=== PATIENT | male | born 1950 | race Caucasian/White ===

== ENCOUNTER → 2019-08-20 | Outpatient (CLI) | payer OTHER | LOC: CARD 11:37 | PROVIDERS: ATTEND Internal Medicine Cardiovascular Disease | DX: I10 Essential (primary) hypertension (principal); E78.2 Mixed hyperlipidemia; I49.3 Ventricular premature depolarization; Z72.0 Tobacco use | CPT/HCPCS: 93306 ==

== ENCOUNTER → 2019-09-01 | Outpatient (CLI) | payer MEDICARE, OTHER ==
[~2019-09-01] VITALS: Ht 187 cm; Wt 142.0 kg
[~2019-09-01] MED LIST: CATHETER FLUSH 10 ML SYR IV PRN; REGADENOSON 0.4 MG/5 ML SYR (LEXISCAN) IV ONE
--- NOTE | 2019-09-01 18:55 | STRESS TEST ---
DATE OF SERVICE: 09/01/2019 LEXISCAN MYOVIEW STRESS TEST REPORT Baseline heart rate is 69, baseline blood pressure 164/94. Baseline EKG is sinus rhythm with no ischemic changes. In summary, the patient was injected with 9.80 mCi of technetium-99 Myoview and the resting images were obtained. Then, the patient received 0.4 mg of Lexiscan followed by 28.1 mCi of technetium-99 Myoview. Throughout the test, there were no EKG changes. The resting and stress images were reviewed and compared in the short axis, horizontal long axis, and vertical long axis views. Review of the images showed diaphragmatic attenuation with fixed defect involving the mid to apical inferior wall, mild reversible ischemia at the mid to apical anterolateral wall. SSS is 3, SDS 2, TID value 1.1. On the gated images, the left ventricle is prominent with end diastolic volume 215 mL and systolic volume 135 mL. Diffuse left ventricular hypokinesia with calculated ejection fraction 37%. CONCLUSION: 1. The patient tolerated Lexiscan well. 2. Diaphragmatic attenuation with fixed defect at the inferior wall, mild ischemia at the mid to apical anterolateral wall. 3. Dilated left ventricle with diffuse left ventricular hypokinesia, calculated ejection fraction is 37%. Job ID: [id number] DocumentID: [id number] Dictated Date: 09/01/2019 14:42:28 Audio Video Tech Date: 09/01/2019 18:54:39 Dictated By: NANDA OSORIO MD
== END ==
LOC: CARD 06:55
PROVIDERS: ATTEND Internal Medicine Cardiovascular Disease
DX: I25.9 Chronic ischemic heart disease, unspecified (principal); I11.9 Hypertensive heart disease without heart failure; I51.89 Other ill-defined heart diseases; E78.2 Mixed hyperlipidemia; I49.3 Ventricular premature depolarization; Z72.0 Tobacco use
CPT/HCPCS: 78452; 93017

== ENCOUNTER 2019-09-08 07:32 | Day surgery (SDC) | payer MEDICARE ==
[~2019-09-08] VITALS: Ht 188 cm; Wt 140.0 kg
[2019-09-08] VITALS (10 sets, daily range): BP systolic 115–174; BP diastolic 61–99
[2019-09-08] MEDS ORDERED: NS IV 1000 ML 1,000 ML IV SCH (07:40)
[2019-09-08] MEDS ORDERED: LIDOCAINE 1% INJ 20 ML 20 ML VIAL ONE (07:42)
[2019-09-08] MEDS ORDERED: HEParin (CATH LAB) 2,000 ML IV ONE (07:43)
[2019-09-08] MEDS ORDERED: NS IV 1000 ML 1,000 ML ONE (07:43)
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
--- OUTSIDE RECORDS SUMMARY | 2019-09-08 07:51 | XMS REPORT ---
Author Author Antoni RIVERA Organization [facility] [address] Address [address] [place] [address] Care Team Providers Care Sieve Maker Name Role Phone SCOTT RIVERA Unavailable PROBLEMS Type Condition ICD9-CM Code HZA57-TM Code Onset Dates Condition S tatus SNOMED Code Problem Lumbago M54.5 Active 427849117 Problem Other and unspecified hyperlipidemia E78.5 Active 43068641 Problem Coccydynia M53.3 August, Active 062274 01 Problem DJD (degenerative joint disease) M19.90 Sep, Active 760027717 Problem Essential hypertension, benign I10 Sep, 2 014 Active 1426623 Problem History of left hip replacement Z96.642 17 Nov, 2017 Active 5006593350042291 Problem Lumbar stenosis M48.061 13 Sep, 2015 Active 1 1764936 Problem Hip pain, chronic M25.559 13 Sep, 2015 Active 148172171 Problem Obesity (BMI 30-39.9) E66.9 Active 323516651 Problem EMMANUEL (generalized anxiety disorder) F41.1 Active 08071021 Problem Essential hypertension I10 Active 18627864 Problem Essential (primary) hypertension I10 Active 77138506 Problem Spinal stenosis of lumbar re gion, unspecified whether neurogenic claudication present M48.061 Active 8792030 7 Problem Tobacco use Z72.0 11 Dec, 2016 Active 40109 3000 Problem Obesity (BMI 30.0-34.9) E66.9 Active 795685287161769 Problem HLD (hyperlipidemia) E78.5 Sep, Active 40780324 Problem Severe obesity (BMI 35.0-39.9) with comorbidity E66.01 Sep, Active 662662955 Problem Other chronic pain G89.29 Active 8 8457092 Problem Seasonal allergic rhinitis, unspecified trigger J3 0.2 Active 854608636 Problem Unspecified osteoarthritis, unspecified site M19.9 0 Active 867002221 Problem Tingling of both feet R20.2 Active 92549976 ALLERGIES No Information ENCOUNTERS Encounter Location Date Diagnosis [address] [id number] [place] [address] August, [address] 340B [id number] [place] [address] Mar, [address] 340 [id number] [address] Mar, EMMANUEL (generalized anxiety dis order) F41.1 and Spinal stenosis of lumbar region, unspecified whether neurogenic claudication present M48.[address] [id number] [address] Mar, EMMANUEL (generalized anxiety dis order) F41.1 [facility] [address] [place] [id number] [place] [address] Mar, Spinal stenosis of lumbar region without neurogenic claudication M48.061 and Obesity (BMI 30-39.9) E66.[address] 340 [id number] [place] [address] Feb, EMMANUEL (generalized anxiety dis order) F41.1 ; Essential hypertension, benign I10 ; Lumbar stenosis M48.061 and HLD (hyperlipidemia) E78.[address] [id number] [place] [address] Feb, [address] 340B [id number], [place] [address] Feb, Spinal stenosis of lumbar re gion without neurogenic claudication M48.061 [facility] [address] [place] [address] [facility] [address] [id number] [place] [address] Jan, Tobacco use Z72.[address] 340B [id number] [place] [address] Jan, Encounter for immunization Z [address] 340 [id number], [place] [address] Jan, Essential hypertension, noam gn I10 ; B12 deficiency E53.8 and Spinal stenosis of lumbar region without neurogenic claudication M48.[address] 340B [id number] [place] [address] Dec, Low back pain M54.5 [facility] [address] [facility] [id number] [place] [address] Nov, Essential hypertension I10 ; Tobacco use Z72.0 ; Encounter for immunization Z23 and Spinal stenosis of lumbar region, unspecified whether neurogenic claudication present M48.[address] 340B [id number], [place] [address] Nov, EMMANUEL (generalized anxiety dis order) F41.1 ; Essential hypertension I10 ; Obesity (BMI 30.0-34.9) E66.9 ; Low back pain M54.5 ; Other chronic pain G89.29 and Lumbar stenosis M48.[address] 340B [id number], [place] [address] Oct, Essential (primary) hyperten amaury I10 and Other chronic pain G89.[address] 340B [id number], [place] [address] Sep, Seasonal allergic rhinitis, unspecified trigger J30.[address] 340B [id number], [place] [address] Sep, Seasonal allergic rhinitis, unspecified trigger J30.2 ; Obesity (BMI 30-39.9) E66.9 ; B12 deficiency E53.8 and Spinal stenosis of lumbar region without neurogenic claudication M48.[address] 340B [id number], [place] [address] Sep, 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 340B [id number], [place] [address] August, [address] 340B [id number], [place] [address] August, Obesity (BMI 30-39.9) E66.9 ; Unspecified osteoarthritis, unspecified site M19.90 ; Other malaise R53.81 ; Other fatigue R53.83 ; Spinal stenosis of lumbar region, unspecified whether neurogenic adrian dication present M48.061 ; Essential (primary) hypertension I10 and Tingling of both feet R20.[address] 340B [id number], [place] [address] Jul, Unspecified osteoarthritis, unspecified site M19.[address] 340B [id number], [place] [address] Jul, EMMANUEL (generalized anxiety dis order) F41.1 ; Obesity (BMI 30-39.9) E66.9 ; Seasonal allergic rhinitis, unspecified trigger J30.2 and Unspecified osteoarthritis, unspecified site M19.90 [facility] WALK IN [facility] [address] [facility] [address] 340 [id number], [place] [address] Jun, Fever, unspecified R50.9 ; I nfluenza A J10.1 ; Nausea R11.0 and Pneumonia J18.9 [facility] [address] [place] [address] [facility] [id number] [place] [address] Jun, [address] 340B [id number], [place] [address] Jun, Low back pain M54.5 ; Other chronic pain G89.29 ; Other and unspecified hyperlipidemia E78.5 ; Cervicalgia 723.1 and Obesity (BMI 30- 39.9) E66.9 [facility] [address] [facility] [id number] [place] [address] May, EMMANUEL (generalized anxiety disorder) F41.1 ; Obesity (BMI 30-39.9) E66.9 ; Essential hypertension I10 and Spinal stenosis of lumbar region, unspecified whether neurogenic claudication present M48.061 [facility] [place] [address] [facility] [id number] [address] [place] [address] Apr, [facility] [address] [id number] [address] [place] [address], [place] [address] Mar, [facility] [address] [id number] [address] [place] [address], [place] [address] Mar, [facility] [address] [facility] [id number] [address] [place] [address] Sep, [facility] [address] [id number] [address] [place] [address] Jan, [facility] [address] [id number] [address] [place] [address] Jul, [facility] [address] [facility] [id number] [address] [place] [address] Jul, [facility] [place] [address] [place] [address] Sep, 14 [facility] [address] [facility] [id number] [address] [place] [address] Sep, [facility] [place] [address] [place] [address] August, 14 [facility] [address] [facility] [id number] [address] [place] [address] August, [facility] [place] [address] [place] [address] Jul, 14 [facility] [address] [facility] [id number] [address] [place] [address] Jul, [facility] [place] [address] [place] [address] Jun, 14 [facility] [address] [facility] [id number] [address] [place] [address] Jun, [facility] [place] [address] [place] [address] May, 14 [facility] [address] [facility] [id number] [address] [place] [address] May, [facility] [place] [address] [place] [address] May, 14 [facility] [place] [address] [facility] [id number] [address] [place] [address] May, [facility] [place] [address] [place] [address] Apr, 14 [facility] [place] [address] [facility] [id number] [address] [place] [address] Apr, [facility] [place] [address] [facility] [id number] [address] [place] [address] Mar, [facility] [place] [address] [place] [address] Mar, 13 [facility] [place] [address] [facility] [id number] [address] [place] [address] Feb, [facility] [place] [address] [place] [address] Feb, 13 [facility] [place] [address] [place] [address] Jan, 13 [facility] [place] [address] [facility] [id number] [address] [place] [address] Jan, [facility] [place] [address] [place] [address] Jan, 13 [facility] [place] [address] [place] [address] [id number] [place] [address] Jan, [facility] [place] [address] [place] [address] Jan, 13 [facility] [place] [address] [place] [address] Jan, 13 [facility] [place] [address] [place] [address] Nov, 13 [facility] [place] [address] [place] [address] Nov, 13 [facility] [place] [address] [place] [address] Nov, 13 IMMUNIZATIONS No Known Immunizations SOCIAL [...]
--- OUTSIDE RECORDS SUMMARY | 2019-09-08 07:51 | XMS REPORT ---
Author Author Antoni RIVERA Organization [facility] [address] Address [address] [place] [address] Care Team Providers Care White Sugar Supervisor Name Role Phone SCOTT RIVERA Unavailable PROBLEMS Type Condition ICD9-CM Code IIX66-MX Code Onset Dates Condition S tatus SNOMED Code Problem Lumbago M54.5 Active 374881185 Problem Other and unspecified hyperlipidemia E78.5 Active 03178646 Problem Coccydynia M53.3 August, Active 020845 01 Problem DJD (degenerative joint disease) M19.90 Sep, Active 375677665 Problem Essential hypertension, benign I10 Sep, 2 014 Active 2980596 Problem History of left hip replacement Z96.642 17 Nov, 2017 Active 4540416308364834 Problem Lumbar stenosis M48.061 13 Sep, 2015 Active 1 8031329 Problem Hip pain, chronic M25.559 13 Sep, 2015 Active 829669166 Problem Obesity (BMI 30-39.9) E66.9 Active 480039974 Problem EMMANUEL (generalized anxiety disorder) F41.1 Active 15910130 Problem Essential hypertension I10 Active 27537086 Problem Essential (primary) hypertension I10 Active 12217120 Problem Spinal stenosis of lumbar re gion, unspecified whether neurogenic claudication present M48.061 Active 4713957 7 Problem Tobacco use Z72.0 11 Dec, 2016 Active 34106 3000 Problem Obesity (BMI 30.0-34.9) E66.9 Active 999572405556155 Problem HLD (hyperlipidemia) E78.5 Sep, Active 28919203 Problem Severe obesity (BMI 35.0-39.9) with comorbidity E66.01 Sep, Active 964675603 Problem Other chronic pain G89.29 Active 8 7842161 Problem Seasonal allergic rhinitis, unspecified trigger J3 0.2 Active 041464898 Problem Unspecified osteoarthritis, unspecified site M19.9 0 Active 090509568 Problem Tingling of both feet R20.2 Active 35267742 ALLERGIES No Information ENCOUNTERS Encounter Location Date Diagnosis [address] 340 [id number] [place] [address] August, [address] 340B [id number] [place] [address] Mar, [address] [id number] [address] Mar, EMMANUEL (generalized anxiety dis order) F41.1 and Spinal stenosis of lumbar region, unspecified whether neurogenic claudication present M48.[address] [id number] [address] Mar, EMMANUEL (generalized anxiety dis order) F41.1 [facility] [address] [place] [id number] [place] [address] Mar, Spinal stenosis of lumbar region without neurogenic claudication M48.061 and Obesity (BMI 30-39.9) E66.[address] [id number] [place] [address] Feb, EMMANUEL (generalized anxiety dis order) F41.1 ; Essential hypertension, benign I10 ; Lumbar stenosis M48.061 and HLD (hyperlipidemia) E78.[address] [id number] [place] [address] Feb, [address] 340B [id number] [address] Feb, Spinal stenosis of lumbar re gion without neurogenic claudication M48.061 [facility] [address] [place] [address] [facility] [address] [id number] [place] [address] Jan, Tobacco use Z72.[address] 340B [id number] [place] [address] Jan, Encounter for immunization Z [address] [id number] [address] Jan, Essential hypertension, noam gn I10 ; B12 deficiency E53.8 and Spinal stenosis of lumbar region without neurogenic claudication M48.[address] 340B [id number] [place] [address] Dec, Low back pain M54.5 [facility] [address] [facility] [id number] [place] [address] Nov, Essential hypertension I10 ; Tobacco use Z72.0 ; Encounter for immunization Z23 and Spinal stenosis of lumbar region, unspecified whether neurogenic claudication present M48.[address] 340B [id number] [place] [address] Nov, EMMANUEL (generalized anxiety dis order) F41.1 ; Essential hypertension I10 ; Obesity (BMI 30.0-34.9) E66.9 ; Low back pain M54.5 ; Other chronic pain G89.29 and Lumbar stenosis M48.[address] 340B [id number] [place] [address] Oct, Essential (primary) hyperten amaury I10 and Other chronic pain G89.[address] 340B [id number] [place] [address] Sep, Seasonal allergic rhinitis, unspecified trigger J30.[address] 340B [id number] [place] [address] Sep, Seasonal allergic rhinitis, unspecified trigger J30.2 ; Obesity (BMI 30-39.9) E66.9 ; B12 deficiency E53.8 and Spinal stenosis of lumbar region without neurogenic claudication M48.[address] 340B [id number] [place] [address] Sep, 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 340B [id number] [place] [address] August, [address] 340B [id number] [place] [address] August, Obesity (BMI 30-39.9) E66.9 ; Unspecified osteoarthritis, unspecified site M19.90 ; Other malaise R53.81 ; Other fatigue R53.83 ; Spinal stenosis of lumbar region, unspecified whether neurogenic adrian dication present M48.061 ; Essential (primary) hypertension I10 and Tingling of both feet R20.[address] 340B [id number] [place] [address] Jul, Unspecified osteoarthritis, unspecified site M19.[address] 340B [id number] [place] [address] Jul, EMMANUEL (generalized anxiety dis order) F41.1 ; Obesity (BMI 30-39.9) E66.9 ; Seasonal allergic rhinitis, unspecified trigger J30.2 and Unspecified osteoarthritis, unspecified site M19.90 [facility] WALK IN [facility] [address] [facility] [address] [id number] [place] [address] Jun, Fever, unspecified R50.9 ; I nfluenza A J10.1 ; Nausea R11.0 and Pneumonia J18.9 [facility] [address] [place] [address] [facility] [id number] [place] [address] Jun, [address] 340B [id number] [place] [address] Jun, Low back pain M54.5 ; Other chronic pain G89.29 ; Other and unspecified hyperlipidemia E78.5 ; Cervicalgia 723.1 and Obesity (BMI 30- 39.9) E66.9 [facility] ARM [address] [facility] [id number] [place] [address] May, EMMANUEL (generalized anxiety disorder) F41.1 ; Obesity (BMI 30-39.9) E66.9 ; Essential hypertension I10 and Spinal stenosis of lumbar region, unspecified whether neurogenic claudication present M48.061 [facility] [address] [facility] [id number] [address] [place] [address] Apr, [facility] [address] [id number] [address] [place] [address], [place] [address] Mar, [facility] [address] [id number] [address] [place] [address], [place] [address] Mar, [facility] [address] [facility] [id number] [address] [place] [address] Sep, [facility] [address] [id number] [address] [place] [address] Jan, [facility] [address] [id number] [address] [place] [address] Jul, [facility] [address] [facility] [id number] [address] [place] [address] Jul, [facility] [place] [address] [place] [address] Sep, 14 [facility] [address] [facility] [id number] [address] [place] [address] Sep, [facility] [place] [address] [place] [address] August, 14 [facility] [address] [facility] [id number] [address] [place] [address] August, [facility] [place] [address] [place] [address] Jul, 14 [facility] [address] [facility] [id number] [address] [place] [address] Jul, [facility] [place] [address] [place] [address] Jun, 14 [facility] [address] [facility] [id number] [address] [place] [address] Jun, [facility] [place] [address] [place] [address] May, 14 [facility] [address] [facility] [id number] [address] [place] [address] May, [facility] [place] [address] [place] [address] May, 14 [facility] [address] [facility] [id number] [address] [place] [address] May, [facility] [place] [address] [place] [address] Apr, 14 [facility] [address] [facility] [id number] [address] [place] [address] Apr, [facility] [address] [facility] [id number] [address] [place] [address] Mar, [facility] [place] [address] [place] [address] Mar, 13 [facility] [address] [facility] [id number] [address] [place] [address] Feb, [facility] [place] [address] [place] [address] Feb, 13 [facility] [place] [address] [place] [address] Jan, 13 [facility] [address] [facility] [id number] [address] [place] [address] Jan, [facility] [place] [address] [place] [address] Jan, 13 [facility] [address] [place] [id number] [place] [address] Jan, [facility] [place] [address] [place] [address] Jan, 13 [facility] [place] [address] [place] [address] Jan, 13 [facility] [place] [address] [place] [address] Nov, 13 [facility] [place] [address] [place] [address] Nov, 13 [facility] [place] [address] [place] [address] Nov, 13 IMMUNIZATIONS No Known Immunizations SOCIAL [...]
--- OUTSIDE RECORDS SUMMARY | 2019-09-08 07:51 | XMS REPORT ---
Author Author Antoni RIVERA Organization [facility] [address] Address [address] [place] [address] Care Team Providers Care Stereotype Molder Name Role Phone SCOTT RIVERA Unavailable PROBLEMS Type Condition ICD9-CM Code ETS78-JT Code Onset Dates Condition S tatus SNOMED Code Problem Lumbago M54.5 Active 194287872 Problem Severe obesity (BMI 35.0-39.9) with comorbidity E66.01 Sep, Active 452024566 Problem DJD (degenerative joint disease) M19.90 Sep, Active 961531414 Problem Tobacco use Z72.0 Dec, Active 19548 3000 Problem History of left hip replacement Z96.642 Nov, Active 9533076468826387 Problem Coccydynia M53.3 August, Active 919038 01 Problem Hip pain, chronic M25.559 13 Sep, 2015 Active 959514452 Problem Essential hypertension, benign I10 20 Sep, 2 014 Active 9751418 Problem Obesity (BMI 30-39.9) E66.9 Active 411096428 Problem EMMANUEL (generalized anxiety disorder) F41.1 Active 51447835 Problem Essential hypertension I10 Active 98194695 Problem Essential (primary) hypertension I10 Active 57472056 Problem Spinal stenosis of lumbar re gion, unspecified whether neurogenic claudication present M48.061 Active 6748657 7 Problem Lumbar stenosis M48.061 13 Sep, 2015 Active 1 4634745 Problem Obesity (BMI 30.0-34.9) E66.9 Active 562165468998664 Problem Other and unspecified hyperlipidemia E78.5 Active 49063603 Problem HLD (hyperlipidemia) E78.5 Sep, Active 63121537 Problem Other chronic pain G89.29 Active 8 3250264 Problem Unspecified osteoarthritis, unspecified site M19.9 0 Active 834468795 Problem Seasonal allergic rhinitis, unspecified trigger J3 0.2 Active 511434202 Problem Tingling of both feet R20.2 Active 55141969 ALLERGIES No Information ENCOUNTERS Encounter Location Date Diagnosis [address] [place] [address] Mar, [address] [address] [place] [address] Mar, EMMANUEL (generalized anxiety dis order) F41.1 and Spinal stenosis of lumbar region, unspecified whether neurogenic claudication present M48.061 [address] [address] [place] [address] Mar, EMMANUEL (generalized anxiety dis order) F41.1 [facility] [address] [place] [address] [address] Mar, Spinal stenosis of lumbar region without neurogenic claudication M48.061 and Obesity (BMI 30-39.9) E66.9 [address] [place] [address] Feb, EMMANUEL (generalized anxiety dis order) F41.1 ; Essential hypertension, benign I10 ; Lumbar stenosis M48.061 and HLD (hyperlipidemia) E78.5 [address] [place] [address] Feb, [address] [place] [address] Feb, Spinal stenosis of lumbar re gion without neurogenic claudication M48.061 [facility] [address] [place] [address] [address] Jan, Tobacco use Z72.0 [address] [address] [place] [address] Jan, Encounter for immunization Z 23 [address] [address] [place] [address] Jan, Essential hypertension, noam gn I10 ; B12 deficiency E53.8 and Spinal stenosis of lumbar region without neurogenic claudication M48.061 [address] [place] [address] 04 Dec, 2018 Low back pain M54.5 [facility] [address] [facility]07757T [place] [address] Nov, Essential hypertension I10 ; Tobacco use Z72.0 ; Encounter for immunization Z23 and Spinal stenosis of lumbar region, unspecified whether neurogenic claudication present M48.061 [address] [address] [place] [address] Nov, EMMANUEL (generalized anxiety dis order) F41.1 ; Essential hypertension I10 ; Obesity (BMI 30.0-34.9) E66.9 ; Low back pain M54.5 ; Other chronic pain G89.29 and Lumbar stenosis M48.061 [address] [address] [place] [address] 09 Oct, 2018 Essential (primary) hyperten amaury I10 and Other chronic pain G89.29 [address] [address] [place] [address] 07 Sep, 2018 Seasonal allergic rhinitis, unspecified trigger J30.2 [address] [place] [address] 07 Sep, 2018 Seasonal allergic rhinitis, unspecified trigger J30.2 ; Obesity (BMI 30-39.9) E66.9 ; B12 deficiency E53.8 and Spinal stenosis of lumbar region without neurogenic claudication M48.061 [address] [address] [place] [address] Sep, 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 [address] [address] [place] [address] August, [address] [address] [place] [address] August, Obesity (BMI 30-39.9) E66.9 ; Unspecified osteoarthritis, unspecified site M19.90 ; Other malaise R53.81 ; Other fatigue R53.83 ; Spinal stenosis of lumbar region, unspecified whether neurogenic adrian dication present M48.061 ; Essential (primary) hypertension I10 and Tingling of both feet R20.[address] [place] [address] Jul, Unspecified osteoarthritis, unspecified site M19.90 [address] [place] [address] Jul, EMMANUEL (generalized anxiety dis order) F41.1 ; Obesity (BMI 30-39.9) E66.9 ; Seasonal allergic rhinitis, unspecified trigger J30.2 and Unspecified osteoarthritis, unspecified site M19.90 [facility] WALK IN [facility] [address] [place] [address] Jun, Fever, unspecified R50.9 ; I nfluenza A J10.1 ; Nausea R11.0 and Pneumonia J18.[address] [facility]07757L [place] [address] Jun, [address] [place] [address] Jun, Low back pain M54.5 ; Other chronic pain G89.29 ; Other and unspecified hyperlipidemia E78.5 ; Cervicalgia 723.1 and Obesity (BMI 30- 39.9) E66.9 [facility] ARM [address] [facility] [id number] [place] [address] May, EMMANUEL (generalized anxiety disorder) F41.1 ; Obesity (BMI 30-39.9) E66.9 ; Essential hypertension I10 and Spinal stenosis of lumbar region, unspecified whether neurogenic claudication present M48.061 [facility] [id number] [place] [address] Apr, [facility] [address] [id number] [place] [address] Mar, [facility] [address] [address] Mar, [facility] [address] [facility]75[address] [place] [address] Sep, [facility] [address] [facility] [place] [address] Jan, [facility] [address] [facility] [place] [address] Jul, [facility] [address] [id number] [place] [address] Jul, [facility] [place] [address] [place] [address] Sep, 14 [facility] [address] [id number] [place] [address] Sep, [facility] [place] [address] [place] [address] August, 14 [facility] [id number] [place] [address] August, [facility] [place] [address] [place] [address] Jul, 14 [facility] [id number] [place] [address] Jul, [facility] [place] [address] [place] [address] Jun, 14 [facility] [id number] [place] [address] Jun, [facility] [place] [address] [place] [address] May, 14 [facility] [address] [facility] [place] [address] May, [facility] [place] [address] [place] [address] May, 14 [facility] [id number] [place] [address] May, [facility] [place] [address] [place] [address] Apr, 14 [facility] [address] [place] [id number] [place] [address] Apr, [facility] [address] [place] [address] Mar, [facility] [place] [address] [place] [address] Mar, [address] [address] Feb, [facility] [place] [address] [place] [address] Feb, 13 [facility] [place] [address] [place] [address] Jan, [address] [address] Jan, [facility] [address] [place] [address] Jan, [id number] [place] [address] Jan, [facility] [place] [address] [place] [address] Jan, 13 [facility] [place] [address] [place] [address] Jan, 13 [facility] [place] [address] [place] [address] Nov, 13 [facility] [place] [address] [place] [address] Nov, 13 [facility] [place] [address] [place] [address] Nov, 13 IMMUNIZATIONS No Known Immunizations SOCIAL [...]
--- OUTSIDE RECORDS SUMMARY | 2019-09-08 07:51 | XMS REPORT ---
Author Author Antoni RIVERA Organization [facility] [address] Address [address] [place] [address] Care Team Providers Care Sewer System Supervisor Name Role Phone SCOTT RIVERA Unavailable PROBLEMS Type Condition ICD9-CM Code BSX53-PR Code Onset Dates Condition S tatus SNOMED Code Problem Lumbago M54.5 Active 952088889 Problem Severe obesity (BMI 35.0-39.9) with comorbidity E66.01 Sep, Active 481929613 Problem DJD (degenerative joint disease) M19.90 Sep, Active 093717378 Problem Tobacco use Z72.0 Dec, Active 05709 3000 Problem History of left hip replacement Z96.642 Nov, Active 2457306598744754 Problem Coccydynia M53.3 August, Active 782794 01 Problem Hip pain, chronic M25.559 13 Sep, 2015 Active 870321112 Problem Essential hypertension, benign I10 20 Sep, 2 014 Active 8171740 Problem Obesity (BMI 30-39.9) E66.9 Active 583873832 Problem EMMANUEL (generalized anxiety disorder) F41.1 Active 76814626 Problem Essential hypertension I10 Active 38883023 Problem Essential (primary) hypertension I10 Active 36420628 Problem Spinal stenosis of lumbar re gion, unspecified whether neurogenic claudication present M48.061 Active 8245258 7 Problem Lumbar stenosis M48.061 13 Sep, 2015 Active 1 5970368 Problem Obesity (BMI 30.0-34.9) E66.9 Active 670670622195007 Problem Other and unspecified hyperlipidemia E78.5 Active 72261959 Problem HLD (hyperlipidemia) E78.5 Sep, Active 59529564 Problem Other chronic pain G89.29 Active 8 8724836 Problem Unspecified osteoarthritis, unspecified site M19.9 0 Active 602510780 Problem Seasonal allergic rhinitis, unspecified trigger J3 0.2 Active 564722894 Problem Tingling of both feet R20.2 Active 56692723 ALLERGIES No Information ENCOUNTERS Encounter Location Date Diagnosis [address] [address] Mar, [address] [address] Mar, EMMANUEL (generalized anxiety dis order) F41.1 and Spinal stenosis of lumbar region, unspecified whether neurogenic claudication present M48.061 [address] [address] Mar, EMMANUEL (generalized anxiety dis order) F41.1 [facility] [address] [place] [address] [address] Mar, Spinal stenosis of lumbar region without neurogenic claudication M48.061 and Obesity (BMI 30-39.9) E66.9 [address] [address] Feb, EMMANUEL (generalized anxiety dis order) F41.1 ; Essential hypertension, benign I10 ; Lumbar stenosis M48.061 and HLD (hyperlipidemia) E78.5 [address] [address] Feb, [address] [address] Feb, Spinal stenosis of lumbar re gion without neurogenic claudication M48.061 [facility] [address] [place] [id number] [address] Jan, Tobacco use Z72.0 [address] [address] Jan, Encounter for immunization Z 23 [address] [address] Jan, Essential hypertension, noam gn I10 ; B12 deficiency E53.8 and Spinal stenosis of lumbar region without neurogenic claudication M48.061 [address] [place] [address] 04 Dec, 2018 Low back pain M54.5 [facility] [address] [facility] [place] [address] Nov, Essential hypertension I10 ; Tobacco use Z72.0 ; Encounter for immunization Z23 and Spinal stenosis of lumbar region, unspecified whether neurogenic claudication present M48.061 [address] [address] Nov, EMMANUEL (generalized anxiety dis order) F41.1 ; Essential hypertension I10 ; Obesity (BMI 30.0-34.9) E66.9 ; Low back pain M54.5 ; Other chronic pain G89.29 and Lumbar stenosis M48.061 [address] [address] 09 Oct, 2018 Essential (primary) hyperten amaury I10 and Other chronic pain G89.29 [address] [address] 07 Sep, 2018 Seasonal allergic rhinitis, unspecified trigger J30.2 [address] [address] 07 Sep, 2018 Seasonal allergic rhinitis, unspecified trigger J30.2 ; Obesity (BMI 30-39.9) E66.9 ; B12 deficiency E53.8 and Spinal stenosis of lumbar region without neurogenic claudication M48.061 [address] [address] Sep, 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 [address] [address] August, [address] [address] August, Obesity (BMI 30-39.9) E66.9 ; Unspecified osteoarthritis, unspecified site M19.90 ; Other malaise R53.81 ; Other fatigue R53.83 ; Spinal stenosis of lumbar region, unspecified whether neurogenic adrian dication present M48.061 ; Essential (primary) hypertension I10 and Tingling of both feet R20.[address] [place] [address] Jul, Unspecified osteoarthritis, unspecified site M19.90 [address] [place] [address] Jul, EMMANUEL (generalized anxiety dis order) F41.1 ; Obesity (BMI 30-39.9) E66.9 ; Seasonal allergic rhinitis, unspecified trigger J30.2 and Unspecified osteoarthritis, unspecified site M19.90 [facility] [address] [place] [address] Jun, Fever, unspecified R50.9 ; I nfluenza A J10.1 ; Nausea R11.0 and Pneumonia J18.[address] [facility] [place] [address] Jun, [address] [place] [address] Jun, Low back pain M54.5 ; Other chronic pain G89.29 ; Other and unspecified hyperlipidemia E78.5 ; Cervicalgia 723.1 and Obesity (BMI 30- 39.9) E66.9 [facility] [address] [facility] [id number] [address] May, EMMANUEL (generalized anxiety disorder) F41.1 ; Obesity (BMI 30-39.9) E66.9 ; Essential hypertension I10 and Spinal stenosis of lumbar region, unspecified whether neurogenic claudication present M48.061 [facility] [id number] [place] [address] Apr, [facility] [id number] [place] [address] Mar, [facility] [address] [address] Mar, [facility] [address] [facility] [place] [address] Sep, [facility] [address] [facility] [place] [address] Jan, [facility] [address] [facility] [place] [address] Jul, [facility] [id number] [place] [address] Jul, [facility] [address] [place] [address] Sep, 14 [facility] [id number] [place] [address] Sep, [facility] [address] [place] [address] August, 14 [facility] [id number] [place] [address] August, [facility] [address] [place] [address] Jul, 14 [facility] [id number] [place] [address] Jul, [facility] [address] [place] [address] Jun, 14 [facility] [id number] [place] [address] Jun, [facility] [address] [place] [address] May, 14 [facility] [address] [facility] [place] [address] May, [facility] [address] [place] [address] May, 14 [facility] [id number] [place] [address] May, [facility] [address] [place] [address] Apr, 14 [facility] [address] [place] [id number] [place] [address] Apr, [facility] [address] [place] [address] Mar, [facility] [address] [place] [address] Mar, [address] [address] Feb, [facility] [address] [place] [address] Feb, 13 [facility] [address] [place] [address] Jan, [address] [address] Jan, [facility] [address] [place] [address] Jan, 13 [id number] [place] [address] Jan, [facility] [address] [place] [address] Jan, 13 [facility] [address] [place] [address] Jan, 13 [facility] [address] [place] [address] Nov, 13 [facility] [address] [place] [address] Nov, 13 [facility] [address] [place] [address] Nov, 13 IMMUNIZATIONS No Known Immunizations SOCIAL [...]
--- OUTSIDE RECORDS SUMMARY | 2019-09-08 07:52 | XMS REPORT ---
Author Author Antoni RIVERA Organization [facility] [address] [place] [address] Care Team Providers Care Stable Cleaner Name Role Phone SCOTT RIVERA Unavailable PROBLEMS Type Condition ICD9-CM Code RCS06-UR Code Onset Dates Condition S tatus SNOMED Code Problem Lumbago M54.5 Active 279017676 Problem Severe obesity (BMI 35.0-39.9) with comorbidity E66.01 Sep, Active 273147659 Problem DJD (degenerative joint disease) M19.90 Sep, Active 521713067 Problem Tobacco use Z72.0 Dec, Active 32063 3000 Problem History of left hip replacement Z96.642 Nov, Active 3463132662271583 Problem Coccydynia M53.3 August, Active 958381 01 Problem Hip pain, chronic M25.559 13 Sep, 2015 Active 323256281 Problem Essential hypertension, benign I10 20 Sep, 2 014 Active 1510500 Problem Obesity (BMI 30-39.9) E66.9 Active 236399008 Problem EMMANUEL (generalized anxiety disorder) F41.1 Active 20117376 Problem Essential hypertension I10 Active 19506299 Problem Essential (primary) hypertension I10 Active 12923998 Problem Spinal stenosis of lumbar re gion, unspecified whether neurogenic claudication present M48.061 Active 2104386 7 Problem Lumbar stenosis M48.061 13 Sep, 2015 Active 1 4931399 Problem Obesity (BMI 30.0-34.9) E66.9 Active 140431609773321 Problem Other and unspecified hyperlipidemia E78.5 Active 68737679 Problem HLD (hyperlipidemia) E78.5 Sep, Active 79863647 Problem Other chronic pain G89.29 Active 8 3134256 Problem Unspecified osteoarthritis, unspecified site M19.9 0 Active 274873777 Problem Seasonal allergic rhinitis, unspecified trigger J3 0.2 Active 068426894 Problem Tingling of both feet R20.2 Active 74297267 ALLERGIES No Information ENCOUNTERS Encounter Location Date Diagnosis [address] [address] Mar, [address] [address] Mar, EMMANUEL (generalized anxiety dis order) F41.1 and Spinal stenosis of lumbar region, unspecified whether neurogenic claudication present M48.061 [address] [address] Mar, EMMANUEL (generalized anxiety dis order) F41.1 [facility] [address] [place] [address] Mar, Spinal stenosis of lumbar region without neurogenic claudication M48.061 and Obesity (BMI 30-39.9) E66.9 [address] [address] Feb, EMMANUEL (generalized anxiety dis order) F41.1 ; Essential hypertension, benign I10 ; Lumbar stenosis M48.061 and HLD (hyperlipidemia) E78.5 [address] [address] Feb, [address] [address] Feb, Spinal stenosis of lumbar re gion without neurogenic claudication M48.061 [facility] [address] [place] [address] Jan, Tobacco use Z72.0 [address] [address] Jan, Encounter for immunization Z 23 [address] [address] Jan, Essential hypertension, noam gn I10 ; B12 deficiency E53.8 and Spinal stenosis of lumbar region without neurogenic claudication M48.061 [address] [place] [address] 04 Dec, 2018 Low back pain M54.5 [facility] [address] [facility] [place] [address] Nov, Essential hypertension I10 ; Tobacco use Z72.0 ; Encounter for immunization Z23 and Spinal stenosis of lumbar region, unspecified whether neurogenic claudication present M48.061 [address] [address] Nov, EMMANUEL (generalized anxiety dis order) F41.1 ; Essential hypertension I10 ; Obesity (BMI 30.0-34.9) E66.9 ; Low back pain M54.5 ; Other chronic pain G89.29 and Lumbar stenosis M48.061 [address] [address] 09 Oct, 2018 Essential (primary) hyperten amaury I10 and Other chronic pain G89.29 [address] [address] 07 Sep, 2018 Seasonal allergic rhinitis, unspecified trigger J30.2 [address] [address] 07 Sep, 2018 Seasonal allergic rhinitis, unspecified trigger J30.2 ; Obesity (BMI 30-39.9) E66.9 ; B12 deficiency E53.8 and Spinal stenosis of lumbar region without neurogenic claudication M48.061 [address] [address] Sep, 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 [address] [address] August, [address] [address] August, Obesity (BMI 30-39.9) E66.9 ; Unspecified osteoarthritis, unspecified site M19.90 ; Other malaise R53.81 ; Other fatigue R53.83 ; Spinal stenosis of lumbar region, unspecified whether neurogenic adrian dication present M48.061 ; Essential (primary) hypertension I10 and Tingling of both feet R20.[address] [place] [address] Jul, Unspecified osteoarthritis, unspecified site M19.90 [address] [place] [address] Jul, EMMANUEL (generalized anxiety dis order) F41.1 ; Obesity (BMI 30-39.9) E66.9 ; Seasonal allergic rhinitis, unspecified trigger J30.2 and Unspecified osteoarthritis, unspecified site M19.90 [facility] WALK IN [facility] [address] [place] [address] Jun, Fever, unspecified R50.9 ; I nfluenza A J10.1 ; Nausea R11.0 and Pneumonia J18.[address] [facility] [place] [address] Jun, [address] [place] [address] Jun, Low back pain M54.5 ; Other chronic pain G89.29 ; Other and unspecified hyperlipidemia E78.5 ; Cervicalgia 723.1 and Obesity (BMI 30- 39.9) E66.9 [facility] [address] [facility] [id number] [address] May, EMMANUEL (generalized anxiety disorder) F41.1 ; Obesity (BMI 30-39.9) E66.9 ; Essential hypertension I10 and Spinal stenosis of lumbar region, unspecified whether neurogenic claudication present M48.061 [facility] [id number] [place] [address] Apr, [facility] [id number] [place] [address] Mar, [facility] [address] [address] Mar, [facility] [address] [facility] [place] [address] Sep, [facility] [address] [facility] [place] [address] Jan, [facility] [address] [facility] [place] [address] Jul, [facility] [id number] [place] [address] Jul, [facility] [address] [place] [address] Sep, 14 [facility] [id number] [place] [address] Sep, [facility] [address] [place] [address] August, 14 [facility] [id number] [place] [address] August, [facility] [address] [place] [address] Jul, 14 [facility] [id number] [place] [address] Jul, [facility] [address] [place] [address] Jun, 14 [facility] [id number] [place] [address] Jun, [facility] [address] [place] [address] May, 14 [facility] [address] [facility] [place] [address] May, [facility] [address] [place] [address] May, 14 [facility] [id number] [place] [address] May, [facility] [address] [place] [address] Apr, 14 [facility] [address] [place] [id number] [place] [address] Apr, [facility] [address] [place] [address] Mar, [facility] [address] [place] [address] Mar, [address] [address] Feb, [facility] [address] [place] [address] Feb, 13 [facility] [address] [place] [address] Jan, [address] [address] Jan, [facility] [address] [place] [address] Jan, 13 [id number] [place] [address] Jan, [facility] [address] [place] [address] Jan, 13 [facility] [address] [place] [address] Jan, 13 [facility] [address] [place] [address] Nov, 13 [facility] [address] [place] [address] Nov, 13 [facility] [address] [place] [address] Nov, 13 IMMUNIZATIONS No Known Immunizations SOCIAL [...]
--- OUTSIDE RECORDS SUMMARY | 2019-09-08 07:52 | XMS REPORT | Clinical Summary ---
Author Author Antoni Coleman Organization All Address Unknown Phone Unavailable Allergies, Adverse Reactions, Alerts Allergy Name Reaction Description Start Date Severity Status Pr ovider Allergies Unknown Conditions or Problems Problem Name Problem Code Onset Date Status Entry Date Provider Comment Standard Description Annotate Problems Unknown Active Medication List Medication Instructions Start Date Stop Date Generic Name NDC Status Provider Patient Instruction Drug Treatment Unknown - unknown
--- OUTSIDE RECORDS SUMMARY | 2019-09-08 07:52 | XMS REPORT ---
Author Author Antoni RIVERA Organization [facility] [address] Address [address] [place] [address] Care Team Providers Care Nailing Machine Operator Automatic Name Role Phone SCOTT RIVERA Unavailable PROBLEMS Type Condition ICD9-CM Code [id number] Code Onset Dates Condition S tatus SNOMED Code Problem Lumbago M54.5 Active 222816402 Problem Severe obesity (BMI 35.0-39.9) with comorbidity E66.01 Sep, Active 818363360 Problem DJD (degenerative joint disease) M19.90 Sep, Active 031358129 Problem Tobacco use Z72.0 Dec, Active 59987 3000 Problem History of left hip replacement Z96.642 Nov, Active 4860387771202313 Problem Coccydynia M53.3 August, Active 205135 01 Problem Hip pain, chronic M25.559 13 Sep, 2015 Active 885016621 Problem Essential hypertension, benign I10 20 Sep, 2 014 Active 6740896 Problem Obesity (BMI 30-39.9) E66.9 Active 466920033 Problem EMMANUEL (generalized anxiety disorder) F41.1 Active 72434655 Problem Essential hypertension I10 Active 44684231 Problem Essential (primary) hypertension I10 Active 00099200 Problem Spinal stenosis of lumbar re gion, unspecified whether neurogenic claudication present M48.061 Active 3500816 7 Problem Lumbar stenosis M48.061 13 Sep, 2015 Active 1 8828440 Problem Obesity (BMI 30.0-34.9) E66.9 Active 511141668549757 Problem Other and unspecified hyperlipidemia E78.5 Active 58095624 Problem HLD (hyperlipidemia) E78.5 Sep, Active 06177783 Problem Other chronic pain G89.29 Active 8 6085472 Problem Unspecified osteoarthritis, unspecified site M19.9 0 Active 138738745 Problem Seasonal allergic rhinitis, unspecified trigger J3 0.2 Active 480777647 Problem Tingling of both feet R20.2 Active 58195750 ALLERGIES No Information ENCOUNTERS Encounter Location Date Diagnosis [address] [address] May, [address] [address] Mar, [address] [address] Mar, EMMANUEL (generalized anxiety dis order) F41.1 and Spinal stenosis of lumbar region, unspecified whether neurogenic claudication present M48.061 [address] [address] Mar, EMMANUEL (generalized anxiety dis order) F41.1 [facility] [address] [place] [id number] [address] Mar, Spinal stenosis of lumbar region without neurogenic claudication M48.061 and Obesity (BMI 30-39.9) E66.9 [address] [address] Feb, EMMANUEL (generalized anxiety dis order) F41.1 ; Essential hypertension, benign I10 ; Lumbar stenosis M48.061 and HLD (hyperlipidemia) E78.5 [address] [address] Feb, [address] [address] Feb, Spinal stenosis of lumbar re gion without neurogenic claudication M48.061 [facility] [address] [id number] [address] Jan, Tobacco use Z72.0 [address] [address] Jan, Encounter for immunization Z 23 [address] [address] Jan, Essential hypertension, noam gn I10 ; B12 deficiency E53.8 and Spinal stenosis of lumbar region without neurogenic claudication M48.061 [address] [place] [address] Dec, Low back pain M54.5 [address] [facility] [id number] [address] Nov, Essential hypertension I10 ; Tobacco use Z72.0 ; Encounter for immunization Z23 and Spinal stenosis of lumbar region, unspecified whether neurogenic claudication present M48.061 [address] [place] [address] Nov, EMMANUEL (generalized anxiety dis order) F41.1 ; Essential hypertension I10 ; Obesity (BMI 30.0-34.9) E66.9 ; Low back pain M54.5 ; Other chronic pain G89.29 and Lumbar stenosis M48.061 [address] [address] Oct, Essential (primary) hyperten amaury I10 and Other chronic pain G89.29 [address] [place] [address] Sep, Seasonal allergic rhinitis, unspecified trigger J30.2 [address] [place] [address] 07 Sep, 2018 Seasonal allergic rhinitis, unspecified trigger J30.2 ; Obesity (BMI 30-39.9) E66.9 ; B12 deficiency E53.8 and Spinal stenosis of lumbar region without neurogenic claudication M48.061 [address] [place] [address] Sep, 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 [address] [place] [address] August, [address] [place] [address] August, Obesity (BMI 30-39.9) E66.9 ; Unspecified osteoarthritis, unspecified site M19.90 ; Other malaise R53.81 ; Other fatigue R53.83 ; Spinal stenosis of lumbar region, unspecified whether neurogenic adrian dication present M48.061 ; Essential (primary) hypertension I10 and Tingling of both feet R20.2 [address] [place] [address] Jul, Unspecified osteoarthritis, unspecified site M19.90 [address] [place] [address] Jul, EMMANUEL (generalized anxiety dis order) F41.1 ; Obesity (BMI 30-39.9) E66.9 ; Seasonal allergic rhinitis, unspecified trigger J30.2 and Unspecified osteoarthritis, unspecified site M19.90 [facility] [address] [address] [place] [address] Jun, Fever, unspecified R50.9 ; I nfluenza A J10.1 ; Nausea R11.0 and Pneumonia J18.9 [facility] [address] [facility] [place] [address] Jun, [address] [place] [address] Jun, Low back pain M54.5 ; Other chronic pain G89.29 ; Other and unspecified hyperlipidemia E78.5 ; Cervicalgia 723.1 and Obesity (BMI 30- 39.9) E66.9 [facility] [address] [facility] [id number] [place] [address] May, EMMANUEL (generalized anxiety disorder) F41.1 ; Obesity (BMI 30-39.9) E66.9 ; Essential hypertension I10 and Spinal stenosis of lumbar region, unspecified whether neurogenic claudication present M48.061 [facility] [address] [id number] [place] [address] Apr, [facility] [id number] [place] [address] Mar, [facility] [address] [facility] [place] [address] Mar, [facility] [id number] [place] [address] Sep, [facility] [address] [facility] [place] [address] Jan, [facility] [id number] [place] [address] Jul, [facility] [address] [id number] [place] [address] Jul, [facility] [place] [address] [place] [address] Sep, 14 [facility] [id number] [place] [address] Sep, [facility] [place] [address] [place] [address] August, 14 [facility] [id number] [place] [address] August, [facility] [place] [address] [place] [address] Jul, 14 [facility] [id number] [place] [address] Jul, [facility] [place] [address] [place] [address] Jun, 14 [facility] [id number] [place] [address] Jun, [facility] [place] [address] [place] [address] May, 14 [facility] [id number] [place] [address] May, [facility] [place] [address] [place] [address] May, 14 [facility] [address] [address] May, [facility] [place] [address] [place] [address] Apr, 14 [facility] [address] [place] [address] Apr, [facility] [address] [place] [address] Mar, [facility] [address] [place] [address] Mar, 13 [facility] [address] [place] [address] Feb, [facility] [address] [place] [address] Feb, [address] [facility] [place] [address] [place] [address] Jan, [address] [address] Jan, [facility] [place] [address] [place] [address] Jan, 13 [id number] [place] [address] Jan, [facility] [place] [address] [place] [address] Jan, 13 [facility] [place] [address] [place] [address] Jan, 13 [facility] [place] [address] [place] [address] Nov, 13 [facility] [place] [address] [place] [address] Nov, 13 [facility] [place] [address] [place] [address] Nov, 13 IMMUNIZATIONS No Known Immunizations SOCIAL [...]
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
--- OUTSIDE RECORDS SUMMARY | 2019-09-08 07:52 | XMS REPORT ---
Author Author Antoni RIVERA Organization [facility] [address] [place] [address] Care Team Providers Care Claims Account Manager Name Role Phone SCOTT RIVERA Unavailable PROBLEMS Type Condition ICD9-CM Code BOX35-BH Code Onset Dates Condition S tatus SNOMED Code Problem Lumbago M54.5 Active 429822237 Problem Severe obesity (BMI 35.0-39.9) with comorbidity E66.01 Sep, Active 691949845 Problem DJD (degenerative joint disease) M19.90 Sep, Active 498827051 Problem Tobacco use Z72.0 Dec, Active 31142 3000 Problem History of left hip replacement Z96.642 Nov, Active 3601563754623983 Problem Coccydynia M53.3 August, Active 508758 01 Problem Hip pain, chronic M25.559 13 Sep, 2015 Active 673278455 Problem Essential hypertension, benign I10 20 Sep, 2 014 Active 3910029 Problem Obesity (BMI 30-39.9) E66.9 Active 162940588 Problem EMMANUEL (generalized anxiety disorder) F41.1 Active 34821760 Problem Essential hypertension I10 Active 42064876 Problem Essential (primary) hypertension I10 Active 58439910 Problem Spinal stenosis of lumbar re gion, unspecified whether neurogenic claudication present M48.061 Active 0097268 7 Problem Lumbar stenosis M48.061 13 Sep, 2015 Active 1 5603323 Problem Obesity (BMI 30.0-34.9) E66.9 Active 331955564784024 Problem Other and unspecified hyperlipidemia E78.5 Active 33331668 Problem HLD (hyperlipidemia) E78.5 Sep, Active 30007087 Problem Other chronic pain G89.29 Active 8 3010677 Problem Unspecified osteoarthritis, unspecified site M19.9 0 Active 601287064 Problem Seasonal allergic rhinitis, unspecified trigger J3 0.2 Active 133955977 Problem Tingling of both feet R20.2 Active 93689998 ALLERGIES No Information ENCOUNTERS Encounter Location Date Diagnosis [address] [address] Mar, [address] [address] Mar, EMMANUEL (generalized anxiety dis order) F41.1 and Spinal stenosis of lumbar region, unspecified whether neurogenic claudication present M48.061 [address] [address] Mar, EMMANUEL (generalized anxiety dis order) F41.1 [facility] [address] [place] [address] Mar, Spinal stenosis of lumbar region without neurogenic claudication M48.061 and Obesity (BMI 30-39.9) E66.9 [address] [address] Feb, EMMANUEL (generalized anxiety dis order) F41.1 ; Essential hypertension, benign I10 ; Lumbar stenosis M48.061 and HLD (hyperlipidemia) E78.5 [address] [address] Feb, [address] [address] Feb, Spinal stenosis of lumbar re gion without neurogenic claudication M48.061 [facility] [address] [place] [address] Jan, Tobacco use Z72.0 [address] [address] Jan, Encounter for immunization Z 23 [address] [address] Jan, Essential hypertension, noam gn I10 ; B12 deficiency E53.8 and Spinal stenosis of lumbar region without neurogenic claudication M48.061 [address] [place] [address] 04 Dec, 2018 Low back pain M54.5 [facility] [address] [facility] [place] [address] Nov, Essential hypertension I10 ; Tobacco use Z72.0 ; Encounter for immunization Z23 and Spinal stenosis of lumbar region, unspecified whether neurogenic claudication present M48.061 [address] [address] Nov, EMMANUEL (generalized anxiety dis order) F41.1 ; Essential hypertension I10 ; Obesity (BMI 30.0-34.9) E66.9 ; Low back pain M54.5 ; Other chronic pain G89.29 and Lumbar stenosis M48.061 [address] [address] 09 Oct, 2018 Essential (primary) hyperten amaury I10 and Other chronic pain G89.29 [address] [address] 07 Sep, 2018 Seasonal allergic rhinitis, unspecified trigger J30.2 [address] [address] 07 Sep, 2018 Seasonal allergic rhinitis, unspecified trigger J30.2 ; Obesity (BMI 30-39.9) E66.9 ; B12 deficiency E53.8 and Spinal stenosis of lumbar region without neurogenic claudication M48.061 [address] [address] Sep, 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 [address] [address] August, [address] [address] August, Obesity (BMI 30-39.9) E66.9 ; Unspecified osteoarthritis, unspecified site M19.90 ; Other malaise R53.81 ; Other fatigue R53.83 ; Spinal stenosis of lumbar region, unspecified whether neurogenic adrian dication present M48.061 ; Essential (primary) hypertension I10 and Tingling of both feet R20.[address] [place] [address] Jul, Unspecified osteoarthritis, unspecified site M19.90 [address] [place] [address] Jul, EMMANUEL (generalized anxiety dis order) F41.1 ; Obesity (BMI 30-39.9) E66.9 ; Seasonal allergic rhinitis, unspecified trigger J30.2 and Unspecified osteoarthritis, unspecified site M19.90 [facility] [address] [place] [address] Jun, Fever, unspecified R50.9 ; I nfluenza A J10.1 ; Nausea R11.0 and Pneumonia J18.[address] [facility] [place] [address] Jun, [address] [place] [address] Jun, Low back pain M54.5 ; Other chronic pain G89.29 ; Other and unspecified hyperlipidemia E78.5 ; Cervicalgia 723.1 and Obesity (BMI 30- 39.9) E66.9 [facility] [address] [facility] [id number] [place] [address] May, EMMANUEL (generalized anxiety disorder) F41.1 ; Obesity (BMI 30-39.9) E66.9 ; Essential hypertension I10 and Spinal stenosis of lumbar region, unspecified whether neurogenic claudication present M48.061 [facility] [id number] [place] [address] Apr, [facility] [id number] [place] [address] Mar, [facility] [address] [address] Mar, [facility] [address] [facility] [place] [address] Sep, [facility] [address] [place] [address] Jan, [facility] [address] [place] [address] Jul, [facility] [id number] [place] [address] Jul, [facility] [place] [address] [place] [address] Sep, 14 [facility] [id number] [place] [address] Sep, [facility] [address] [place] [address] August, 14 [facility] [id number] [place] [address] August, [facility] [address] [place] [address] Jul, 14 [facility] [id number] [place] [address] Jul, [facility] [address] [place] [address] Jun, 14 [facility] [id number] [place] [address] Jun, [facility] [address] [place] [address] May, 14 [facility] [address] [place] [address] May, [facility] [address] [place] [address] May, 14 [facility] [id number] [place] [address] May, [facility] [address] [place] [address] Apr, 14 [facility] [address] [place] [id number] [place] [address] Apr, [facility] [address] [place] [address] Mar, [facility] [address] [place] [address] Mar, [address] [address] Feb, [facility] [address] [place] [address] Feb, 13 [facility] [address] [place] [address] Jan, [address] [address] Jan, [facility] [address] [place] [address] Jan, 13 [id number] [place] [address] Jan, [facility] [address] [place] [address] Jan, 13 [facility] [address] [place] [address] Jan, 13 [facility] [address] [place] [address] Nov, 13 [facility] [address] [place] [address] Nov, 13 [facility] [address] [place] [address] Nov, 13 IMMUNIZATIONS No Known Immunizations SOCIAL [...]
--- OUTSIDE RECORDS SUMMARY | 2019-09-08 07:52 | XMS REPORT ---
Author Author KUSH Antoni MCCALLUM Organization [facility] Address [address] [place] [address] Care Team Providers Care Life Insurance Salesperson Name Role Phone XENA CURRIE Unavailable PROBLEMS Type Condition ICD9-CM Code GEE82-VL Code Onset Dates Condition S tatus SNOMED Code Problem Lumbar stenosis M48.061 13 Sep, 2015 0 1 7015746 Problem Severe obesity (BMI 35.0-39.9) with comorbidity 278.01 Sep, 0 925732475 Problem HLD (hyperlipidemia) E78.5 Sep, 0 29640246 Problem Hip pain, chronic 719.45 Sep, 0 246758524 Problem Severe obesity (BMI 35.0-39.9) with comorbidity E6 6.01 Sep, 0 592095392 Problem DJD (degenerative joint disease) 715.90 Sep, 0 369355579 Problem Lumbar stenosis 724.02 Sep, 0 1 3941957 Problem Other and unspecified hyperlipidemia E78.5 Active 01485449 Problem Hip pain, chronic M25.559 Sep, 0 692735811 Problem Coccydynia 724.79 August, 0 369696 01 Problem History of left hip replacement V43.64 Nov, 0 9337568535621083 Problem HLD (hyperlipidemia) 272.4 Sep, 0 52469523 Problem Essential hypertension, benign 401.1 Active 1017225 Problem Tobacco use Z72.0 11 Dec, 2016 0 81603 3000 Problem Lumbago M54.5 Active 862934363 Problem Coccydynia M53.3 August, 0 260524 01 Problem DJD (degenerative joint disease) M19.90 Sep, 0 497037509 Problem Essential hypertension, benign I10 20 Sep, 2 014 0 6194503 Problem History of left hip replacement Z96.642 Nov, 0 1695692562703062 Problem Obesity (BMI 30-39.9) E66.9 Active 908284167 Problem EMMANUEL (generalized anxiety disorder) F41.1 Active 30830545 Problem Essential hypertension I10 Active 75991208 Problem Tingling of both feet R20.2 Active 58617722 Problem Need for prophylactic vaccination and inoculation, Influen za V04.81 Active 619490647 Problem Essential (primary) hypertension I10 Active 11352768 Problem Tobacco use 305.1 11 Dec, 2016 0 26574 3000 Problem Cervicalgia 723.1 Active 30645539 Problem Spinal stenosis of lumbar re gion, unspecified whether neurogenic claudication present M48.061 Active 2209302 7 Problem Other chronic pain G89.29 Active 8 9021011 Problem Unspecified osteoarthritis, unspecified site M19.9 0 Active 474481170 Problem Seasonal allergic rhinitis, unspecified trigger J3 0.2 Active 748073665 ALLERGIES No Information ENCOUNTERS Encounter Location Date Diagnosis [address] [address] Sep, [address] [address] August, [address] [address] August, Obesity (BMI 30-39.9) E66.9 ; Unspecifie d osteoarthritis, unspecified site M19.90 ; Other malaise R53.81 ; Other fatigue R53.83 ; Spinal stenosis of lumbar region, unspecified whether neurogenic claudication present M48.061 ; Essential (primary) hypertension I10 and Tingling of both feet R20.[address] [address] Jul, Unspecified osteoarthritis, unspecified site M19.[address] [address] Jul, EMMANUEL (generalized anxiety disorder) F41.1 ; Obesity (BMI 30-39.9) E66.9 ; Seasonal allergic rhinitis, unspecified trigger J30.2 and Unspecified osteoarthritis, unspecified site M19.90 [facility] [address] [place] [address] Jun, Fever, unspecified R50.9 ; Influenza A J 10.1 ; Nausea R11.0 and Pneumonia J18.9 [facility] [address] [place] [address] Jun, [address] [address] Jun, Low back pain M54.5 ; Other chronic pain G89.29 ; Other and unspecified hyperlipidemia E78.5 ; Cervicalgia 723.1 and Obesity (BMI 30-39.9) E66.9 [facility] [address] [place] [address] May, EMMANUEL (generalized anxiety disorder) F41.1 ; Obesity (BMI 30-39.9) E66.9 ; Essential hypertension I10 and Spinal stenosis of lumbar region, unspecified whether neurogenic claudication present M48.061 [facility] [address] [place] [address] Apr, [facility] [address] [facility] [id number] [address] [place] [address] Mar, [facility] [address] [facility] [id number] [address] [place] [address] Mar, [facility] [id number] [place] [address] Sep, [facility] [address] [facility] [id number] [address] [place] [address] Jan, [facility] [id number] [place] [address] Jul, [facility] [id number] [place] [address] Jul, [facility] [address] [place] [address] Sep, 14 [facility] [id number] [place] [address] Sep, [facility] [address] [place] [address] August, 14 [facility] [address] [facility] [id number] [address] [place] [address] August, [facility] [address] [place] [address] Jul, 14 [facility] [address] [facility] [id number] [address] [place] [address] Jul, [facility] [address] [place] [address] Jun, 14 [facility] [address] [facility] [id number] [address] [place] [address] Jun, [facility] [address] [place] [address] May, 14 [facility] [address] [facility] [id number] [address] [place] [address] May, [facility] [address] [place] [address] May, 14 [facility] [address] [facility] [id number] [address] [place] [address] May, [facility] [address] [place] [address] Apr, 14 [facility] [address] [facility] [id number] [address] [place] [address] Apr, [facility] [address] [facility] [id number] [address] [place] [address] Mar, [facility] [address] [place] [address] Mar, 13 [facility] [address] [facility] [id number] [address] [place] [address] Feb, [facility] [address] [place] [address] Feb, 13 [facility] [place] [address] [place] [address] Jan, 13 [facility] [address] [facility] [id number] [place] [address] Jan, [facility] [address] [place] [address] Jan, 13 [facility] [address] [facility] [id number] [place] [address] Jan, [facility] [address] [place] [address] Jan, [address] [facility] [address] [place] [address] Jan, 13 [facility] [address] [place] [address] Nov, 13 [facility] [address] [place] [address] Nov, [address] [facility] [address] [place] [address] Nov, 13 IMMUNIZATIONS No Known Immunizations SOCIAL HISTORY Never Assessed REASON FOR VISIT hydrocodone rx PLAN OF CARE VITAL SIGNS MEDICATIONS Unknown Medications RESULTS No Results PROCEDURES No Known procedures INSTRUCTIONS MEDICATIONS ADMINISTERED No Known Medications MEDICAL (GENERAL) HISTORY Type Description Date Medical History hypertension Medical History hypercholesterolemia Medical History obesity Surgical History left hip replacement 09/2017 Hospitalization History Surgery(s) only
--- OUTSIDE RECORDS SUMMARY | 2019-09-08 07:52 | XMS REPORT ---
Author Author Antoni SANTANA [facility] Address [address] [place] [address] Care Team Providers Care Home Office Representative Name Role Phone ESTHER ED Unavailable PROBLEMS Type Condition ICD9-CM Code FJL36-TO Code Onset Dates Condition S tatus SNOMED Code Problem Other and unspecified hyperlipidemia 272.4 Active 74239016 Problem Essential hypertension, benign 401.1 Active 5337939 Problem Need for prophylactic vaccination and inoculation, Influen za V04.81 Active 994773891 Problem Lumbago 724.2 Active 747707096 Problem Cervicalgia 723.1 Active 77401105 ALLERGIES No Information ENCOUNTERS Encounter Location Date Diagnosis [facility] [id number] [place] [address] Sep, [facility] [address] [facility] [id number] [address] [place] [address] Jul, [facility] [id number] [place] [address] Jul, [facility] [address] [place] [address] Sep, 14 [facility] [id number] [place] [address] Sep, [address] [address] August, 14 [facility] [address] [facility] [id number] [address] [place] [address] August, [facility] [address] [place] [address] Jul, 14 [facility] [id number] [place] [address] Jul, [facility] [address] [place] [address] [place] [address] 10 Jun, 14 [facility] [address] [facility] [id number] [address] [place] [address] Jun, [facility] [address] [place] [address] May, 14 [facility] [address] [facility] [id number] [address] [place] [address] May, [facility] [address] [place] [address] May, 14 [facility] [address] [facility] [id number] [address] [place] [address] May, [facility] [address] [place] [address] Apr, 14 [facility] [address] [facility] [id number] [address] [place] [address] Apr, [facility] [address] [facility] [id number] [address] [place] [address] Mar, [facility] [address] [place] [address] Mar, 13 [facility] [address] [facility] [id number] [address] [place] [address] Feb, [facility] [address] [place] [address] Feb, 13 [facility] [address] [place] [address] Jan, 13 [facility] [address] [facility] [id number] [address] [place] [address] Jan, [facility] [address] [place] [address] Jan, 13 [facility] [address] [facility] [id number] [address] [place] [address] Jan, [facility] [address] [place] [address] Jan, 13 [facility] [address] [place] [address] Jan, 13 [facility] [address] [place] [address] Nov, [facility] [address] [place] [address] Nov, 13 [facility] [address] [place] [address] Nov, 13 IMMUNIZATIONS No Known Immunizations SOCIAL HISTORY Never Assessed REASON FOR VISIT [facility] application PLAN OF CARE VITAL SIGNS MEDICATIONS Unknown Medications RESULTS No Results PROCEDURES No Known procedures INSTRUCTIONS MEDICATIONS ADMINISTERED No Known Medications
--- OUTSIDE RECORDS SUMMARY | 2019-09-08 07:52 | XMS REPORT ---
Author Author Antoni Desai Doctor Organization [facility] Address Unknown Phone Unavailable Care Team Providers Care Park Keeper Name Role Phone Migration, Doctor Unavailable Unavailable PROBLEMS Type Condition ICD9-CM Code [id number] Code Onset Dates Condition S tatus SNOMED Code Problem Lumbar stenosis M48.061 Sep, 0 1 7472339 Problem Severe obesity (BMI 35.0-39.9) with comorbidity 278.01 Sep, 0 714342650 Problem HLD (hyperlipidemia) E78.5 Sep, 0 86315018 Problem Hip pain, chronic 719.45 Sep, 0 931219722 Problem Severe obesity (BMI 35.0-39.9) with comorbidity E6 6.01 Sep, 0 690909966 Problem DJD (degenerative joint disease) 715.90 Sep, 0 665116946 Problem Lumbar stenosis 724.02 Sep, 0 1 7987133 Problem Other and unspecified hyperlipidemia E78.5 Active 16037341 Problem Hip pain, chronic M25.559 Sep, 0 567311043 Problem Coccydynia 724.79 August, 0 099237 01 Problem History of left hip replacement V43.64 Nov, 0 5634273737495100 Problem HLD (hyperlipidemia) 272.4 Sep, 0 05187531 Problem Essential hypertension, benign 401.1 Active 7632772 Problem Tobacco use Z72.0 Dec, 0 73908 3000 Problem Lumbago M54.5 Active 550765744 Problem Coccydynia M53.3 August, 0 622136 01 Problem DJD (degenerative joint disease) M19.90 Sep, 0 918273631 Problem Essential hypertension, benign I10 20 Sep, 2 014 0 6052028 Problem History of left hip replacement Z96.642 Nov, 0 3292672922819266 Problem Obesity (BMI 30-39.9) E66.9 Active 441861484 Problem EMMANUEL (generalized anxiety disorder) F41.1 Active 85169258 Problem Essential hypertension I10 Active 01098972 Problem Tingling of both feet R20.2 Active 57656658 Problem Need for prophylactic vaccination and inoculation, Influen za V04.81 Active 423873692 Problem Essential (primary) hypertension I10 Active 37509602 Problem Tobacco use 305.1 11 Dec, 2016 0 22205 3000 Problem Cervicalgia 723.1 Active 24908539 Problem Spinal stenosis of lumbar re gion, unspecified whether neurogenic claudication present M48.061 Active 6236611 7 Problem Other chronic pain G89.29 Active 8 6517683 Problem Unspecified osteoarthritis, unspecified site M19.9 0 Active 713906982 Problem Seasonal allergic rhinitis, unspecified trigger J3 0.2 Active 693898716 ALLERGIES No Information ENCOUNTERS Encounter Location Date Diagnosis [address] [address] Sep, [address] [address] August, [address] [address] August, Obesity (BMI 30-39.9) E66.9 ; Unspecifie d osteoarthritis, unspecified site M19.90 ; Other malaise R53.81 ; Other fatigue R53.83 ; Spinal stenosis of lumbar region, unspecified whether neurogenic claudication present M48.061 ; Essential (primary) hypertension I10 and Tingling of both feet R20.[address] [address] Jul, Unspecified osteoarthritis, unspecified site M19.[address] [address] Jul, EMMANUEL (generalized anxiety disorder) F41.1 ; Obesity (BMI 30-39.9) E66.9 ; Seasonal allergic rhinitis, unspecified trigger J30.2 and Unspecified osteoarthritis, unspecified site M19.90 [facility]ALK [facility] [address] [place] [address] Jun, Fever, unspecified R50.9 ; Influenza A J 10.1 ; Nausea R11.0 and Pneumonia J18.9 [facility] [address] [place] [address] Jun, 19 [facility] [address] [address] Jun, Low back pain M54.5 ; Other chronic pain G89.29 ; Other and unspecified hyperlipidemia E78.5 ; Cervicalgia 723.1 and Obesity (BMI 30-39.9) E66.9 [facility] [place] [address] [place] [address] May, EMMANUEL (generalized anxiety disorder) F41.1 ; Obesity (BMI 30-39.9) E66.9 ; Essential hypertension I10 and Spinal stenosis of lumbar region, unspecified whether neurogenic claudication present M48.061 [facility] [address] [id number] [address] [place] [address] Apr, [facility] [address] [id number] [address] [place] [address] Mar, [facility] [address] [facility] [id number] [address] [place] [address] Mar, [facility] [address] [facility] [id number] [address] [place] [address] Sep, [facility] [address] [facility] [id number] [address] [place] [address] Jan, [facility] [address] [facility] [id number] [address] [place] [address] Jul, [facility] [address] [facility] [id number] [address] [place] [address] Jul, [facility] [address] [place] [address] Sep, 14 [facility] [address] [facility] [id number] [address] [place] [address] Sep, [facility] [place] [address] [place] [address] August, 14 [facility] [address] [facility] [id number] [address] [place] [address] August, [facility] [place] [address] [place] [address] Jul, 14 [facility] [address] [facility] [id number] [address] [place] [address] Jul, [facility] [place] [address] [place] [address] Jun, 14 [facility] [address] [facility] [id number] [address] [place] [address] Jun, [facility] [place] [address] [place] [address] May, 14 [facility] [address] [facility] [id number] [address] [place] [address] May, [facility] [place] [address] [place] [address] May, 14 [facility] [address] [facility] [id number] [address] [place] [address] May, [facility] [place] [address] [place] [address] Apr, 14 [facility] [address] [facility] [id number] [address] [place] [address] Apr, [facility] [address] [facility] [id number] [address] [place] [address] Mar, [facility] [place] [address] [place] [address] Mar, 13 [facility] [address] [facility] [id number] [address] [place] [address] Feb, [facility] [place] [address] [place] [address] Feb, 13 [facility] [place] [address] [place] [address] Jan, 13 [facility] [address] [facility] [id number] [address] [place] [address] Jan, [facility] [place] [address] [place] [address] Jan, 13 [facility] [address] [facility] [id number] [address] [place] [address] Jan, [facility] [place] [address] [place] [address] Jan, 13 [facility] [place] [address] [place] [address] Jan, 13 [facility] [place] [address] [place] [address] Nov, 13 [facility] [place] [address] [place] [address] Nov, 13 [facility] [place] [address] [place] [address] Nov, 13 IMMUNIZATIONS No Known Immunizations SOCIAL HISTORY Never Assessed REASON FOR VISIT [facility] PLAN OF CARE VITAL SIGNS MEDICATIONS Unknown Medications RESULTS No Results PROCEDURES No Known procedures INSTRUCTIONS MEDICATIONS ADMINISTERED No Known Medications MEDICAL (GENERAL) HISTORY Type Description Date Medical History hypertension Medical History hypercholesterolemia Medical History obesity Surgical History left hip replacement 09/2017 Hospitalization History Surgery(s) only
--- OUTSIDE RECORDS SUMMARY | 2019-09-08 07:52 | XMS REPORT ---
Author Author Antoni RIVERA Organization [facility] [address] Address [address] [place] [address] Care Team Providers Care Fur Trimmer Name Role Phone SCOTT RIVERA Unavailable PROBLEMS Type Condition ICD9-CM Code GPV08-WD Code Onset Dates Condition S tatus SNOMED Code Problem Lumbago M54.5 Active 601893041 Problem Severe obesity (BMI 35.0-39.9) with comorbidity E66.01 Sep, Active 290635501 Problem DJD (degenerative joint disease) M19.90 Sep, Active 023649147 Problem Tobacco use Z72.0 Dec, Active 70978 3000 Problem History of left hip replacement Z96.642 Nov, Active 3955080120149903 Problem Coccydynia M53.3 August, Active 408546 01 Problem Hip pain, chronic M25.559 13 Sep, 2015 Active 677645458 Problem Essential hypertension, benign I10 20 Sep, 2 014 Active 7470824 Problem Obesity (BMI 30-39.9) E66.9 Active 880630254 Problem EMMANUEL (generalized anxiety disorder) F41.1 Active 56896424 Problem Essential hypertension I10 Active 37626661 Problem Essential (primary) hypertension I10 Active 73957721 Problem Spinal stenosis of lumbar re gion, unspecified whether neurogenic claudication present M48.061 Active 9292688 7 Problem Lumbar stenosis M48.061 13 Sep, 2015 Active 1 4411897 Problem Obesity (BMI 30.0-34.9) E66.9 Active 885916266249728 Problem Other and unspecified hyperlipidemia E78.5 Active 46132152 Problem HLD (hyperlipidemia) E78.5 Sep, Active 23708236 Problem Other chronic pain G89.29 Active 8 6575814 Problem Unspecified osteoarthritis, unspecified site M19.9 0 Active 919722818 Problem Seasonal allergic rhinitis, unspecified trigger J3 0.2 Active 063382590 Problem Tingling of both feet R20.2 Active 65954440 ALLERGIES No Information ENCOUNTERS Encounter Location Date Diagnosis [address] [address] Mar, [address] [address] Mar, EMMANUEL (generalized anxiety dis order) F41.1 and Spinal stenosis of lumbar region, unspecified whether neurogenic claudication present M48.061 [address] [address] Mar, EMMANUEL (generalized anxiety dis order) F41.[address] [facility] [address] [place] [address] Mar, Spinal stenosis of lumbar region without neurogenic claudication M48.061 and Obesity (BMI 30-39.9) E66.9 [address] [place] [address] Feb, EMMANUEL (generalized anxiety dis order) F41.1 ; Essential hypertension, benign I10 ; Lumbar stenosis M48.061 and HLD (hyperlipidemia) E78.5 [address] [address] Feb, [address] [address] Feb, Spinal stenosis of lumbar re gion without neurogenic claudication M48.[address] [facility] [address] [place] [address] Jan, Tobacco use Z72.0 [address] [address] Jan, Encounter for immunization Z 23 [address] [address] Jan, Essential hypertension, noam gn I10 ; B12 deficiency E53.8 and Spinal stenosis of lumbar region without neurogenic claudication M48.061 [address] [place] [address] 04 Dec, 2018 Low back pain M54.5 [facility] [address] [facility] [place] [address] Nov, Essential hypertension I10 ; Tobacco use Z72.0 ; Encounter for immunization Z23 and Spinal stenosis of lumbar region, unspecified whether neurogenic claudication present M48.061 [address] [address] Nov, EMMANUEL (generalized anxiety dis order) F41.1 ; Essential hypertension I10 ; Obesity (BMI 30.0-34.9) E66.9 ; Low back pain M54.5 ; Other chronic pain G89.29 and Lumbar stenosis M48.061 [address] [address] 09 Oct, 2018 Essential (primary) hyperten amaury I10 and Other chronic pain G89.29 [address] [address] 07 Sep, 2018 Seasonal allergic rhinitis, unspecified trigger J30.2 [address] [address] 07 Sep, 2018 Seasonal allergic rhinitis, unspecified trigger J30.2 ; Obesity (BMI 30-39.9) E66.9 ; B12 deficiency E53.8 and Spinal stenosis of lumbar region without neurogenic claudication M48.061 [address] [address] Sep, 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 [address] [address] August, [address] [address] August, Obesity (BMI 30-39.9) E66.9 ; Unspecified osteoarthritis, unspecified site M19.90 ; Other malaise R53.81 ; Other fatigue R53.83 ; Spinal stenosis of lumbar region, unspecified whether neurogenic adrian dication present M48.061 ; Essential (primary) hypertension I10 and Tingling of both feet R20.[address] [place] [address] Jul, Unspecified osteoarthritis, unspecified site M19.90 [address] [place] [address] Jul, EMMANUEL (generalized anxiety dis order) F41.1 ; Obesity (BMI 30-39.9) E66.9 ; Seasonal allergic rhinitis, unspecified trigger J30.2 and Unspecified osteoarthritis, unspecified site M19.90 [facility] WALK IN [facility] [address] [place] [address] Jun, Fever, unspecified R50.9 ; I nfluenza A J10.1 ; Nausea R11.0 and Pneumonia J18.[address] [facility] [place] [address] Jun, [address] [place] [address] Jun, Low back pain M54.5 ; Other chronic pain G89.29 ; Other and unspecified hyperlipidemia E78.5 ; Cervicalgia 723.1 and Obesity (BMI 30- 39.9) E66.[address] [facility] [address] [facility] [id number] [place] [address] May, EMMANUEL (generalized anxiety disorder) F41.1 ; Obesity (BMI 30-39.9) E66.9 ; Essential hypertension I10 and Spinal stenosis of lumbar region, unspecified whether neurogenic claudication present M48.061 [facility] [id number] [place] [address] Apr, [facility] [id number] [place] [address] Mar, [facility] [address] [address] Mar, [facility] [address] [facility] [place] [address] Sep, [facility] [address] [facility] [place] [address] Jan, [facility] [address] [facility] [place] [address] Jul, [facility] [id number] [place] [address] Jul, [facility] [place] [address] [place] [address] Sep, 14 [facility] [id number] [place] [address] Sep, [facility] [place] [address] [place] [address] August, 14 [facility] [id number] [place] [address] August, [facility] [place] [address] [place] [address] Jul, 14 [facility] [id number] [place] [address] Jul, [facility] [place] [address] [place] [address] Jun, 14 [facility] [id number] [place] [address] Jun, [facility] [place] [address] [place] [address] May, 14 [facility] [address] [facility] [place] [address] May, [facility] [place] [address] [place] [address] May, 14 [facility] [id number] [place] [address] May, [facility] [place] [address] [place] [address] Apr, 14 [facility] [address] [place] [id number] [place] [address] Apr, [facility] [address] [place] [address] Mar, [facility] [place] [address] [place] [address] Mar, [address] [address] Feb, [facility] [place] [address] [place] [address] Feb, 13 [facility] [place] [address] [place] [address] Jan, [address] [address] Jan, [facility] [address] [place] [address] Jan, 13 [id number] [place] [address] Jan, [facility] [place] [address] [place] [address] Jan, 13 [facility] [place] [address] [place] [address] Jan, 13 [facility] [place] [address] [place] [address] Nov, 13 [facility] [place] [address] [place] [address] Nov, 13 [facility] [place] [address] [place] [address] Nov, 13 IMMUNIZATIONS No Known Immunizations SOCIAL [...]
--- OUTSIDE RECORDS SUMMARY | 2019-09-08 07:52 | XMS REPORT ---
Author Author Antoni SALAZAR Organization [facility] Address [address] [place] [address] Care Team Providers Care Route Jumper Name Role Phone ANDERSON SALAZAR Unavailable PROBLEMS Type Condition ICD9-CM Code BNT65-EN Code Onset Dates Condition S tatus SNOMED Code Problem Lumbago M54.5 Active 808118697 Problem Severe obesity (BMI 35.0-39.9) with comorbidity E66.01 Sep, Active 038395410 Problem DJD (degenerative joint disease) M19.90 Sep, Active 638248847 Problem Tobacco use Z72.0 Dec, Active 97141 3000 Problem History of left hip replacement Z96.642 Nov, Active 5216133634234649 Problem Coccydynia M53.3 August, Active 071348 01 Problem Hip pain, chronic M25.559 13 Sep, 2015 Active 281337969 Problem Essential hypertension, benign I10 20 Sep, 2 014 Active 2095741 Problem Obesity (BMI 30-39.9) E66.9 Active 993230475 Problem EMMANUEL (generalized anxiety disorder) F41.1 Active 24749811 Problem Essential hypertension I10 Active 32870256 Problem Essential (primary) hypertension I10 Active 73088730 Problem Spinal stenosis of lumbar re gion, unspecified whether neurogenic claudication present M48.061 Active 8422002 7 Problem Lumbar stenosis M48.061 13 Sep, 2015 Active 1 9539209 Problem Obesity (BMI 30.0-34.9) E66.9 Active 324606269386109 Problem Other and unspecified hyperlipidemia E78.5 Active 98029872 Problem HLD (hyperlipidemia) E78.5 Sep, Active 61483683 Problem Other chronic pain G89.29 Active 8 3790752 Problem Unspecified osteoarthritis, unspecified site M19.9 0 Active 222242461 Problem Seasonal allergic rhinitis, unspecified trigger J3 0.2 Active 316984933 Problem Tingling of both feet R20.2 Active 35087407 ALLERGIES Substance Reaction Event Type Date Status Vicodin Unknown Drug Allergy Jun, Active ENCOUNTERS Encounter Location Date Diagnosis [address] [address] Jan, [address] [address] Dec, Low back pain M54.[address] [address] Nov, Essential hypertension I10 ; Tobacco use Z72.0 ; Encounter for immunization Z23 and Spinal stenosis of lumbar region, unspecified whether neurogenic claudication present M48.[address] [address] Nov, EMMANUEL (generalized anxiety disorder) F41.1 ; Essential hypertension I10 ; Obesity (BMI 30.0-34.9) E66.9 ; Low back pain M54.5 ; Other chronic pain G89.29 and Lumbar stenosis M48.[address] [address] Oct, Essential (primary) hypertension I10 and Other chronic pain G89.[address] [address] Sep, Seasonal allergic rhinitis, unspecified trigger J30.[address] [address] Sep, Seasonal allergic rhinitis, unspecified trigger J30.2 ; Obesity (BMI 30-39.9) E66.9 ; B12 deficiency E53.8 and Spinal stenosis of lumbar region without neurogenic claudication M48.[address] [address] Sep, Encounter for Department of Transportati on (DOT) examination for driving license renewal Z02.[address] [address] August, [address] [address] August, Obesity (BMI 30-39.9) E66.9 ; Unspecifie d osteoarthritis, unspecified site M19.90 ; Other malaise R53.81 ; Other fatigue R53.83 ; Spinal stenosis of lumbar region, unspecified whether neurogenic claudication present M48.061 ; Essential (primary) hypertension I10 and Tingling of both feet R20.[address] [address] Jul, Unspecified osteoarthritis, unspecified site M19.[address] [address] Jul, EMMANUEL (generalized anxiety disorder) F41.1 ; Obesity (BMI 30-39.9) E66.9 ; Seasonal allergic rhinitis, unspecified trigger J30.2 and Unspecified osteoarthritis, unspecified site M19.90 [facility] [address] [place] [address] Jun, Fever, unspecified R50.9 ; Influenza A J 10.1 ; Nausea R11.[address] [facility] [address] [place] [address] 08 Jun, [address] [address] Jun, Low back pain M54.5 ; Other chronic pain G89.29 ; Other and unspecified hyperlipidemia E78.5 ; Cervicalgia 723.1 and Obesity (BMI 30-39.9) E66.9 [facility] [address] [place] [address] May, EMMANUEL (generalized anxiety disorder) F41.1 ; Obesity (BMI 30-39.9) E66.9 ; Essential hypertension I10 and Spinal stenosis of lumbar region, unspecified whether neurogenic claudication present M48.061 [facility] [address] [id number] [address] [place] [address] Apr, [facility] [id number] [place] [phone] Mar, [facility] [id number] [place] [phone] Mar, [facility] [address] [facility] [id number] [address] [place] [phone] Sep, [facility] [address] [facility] [id number] [address] [place] [address], [place] [address] Jan, [facility] [address] [facility] [id number] [address] [place] [phone] Jul, [facility] [address] [facility] [id number] [address] [place] [phone] Jul, [facility] [address] [place] [address] Sep, 14 [facility] [address] [facility] [id number] [address] [place] [phone] Sep, [facility] [address] [place] [address] August, 14 [facility] [address] [facility] [id number] [address] [place] [phone] August, [facility] [address] [place] [address] Jul, 14 [facility] [address] [facility] [id number] [address] [place] [phone] Jul, [facility] [address] [place] [address] Jun, 14 [facility] [address] [facility] [id number] [address] [place] [phone] Jun, [facility] [place] [address] [place] [address] May, 14 [facility] [address] [facility] [id number] [address] [place] [phone] May, [facility] [address] [place] [address] May, 14 [facility] [address] [facility] [id number] [address] [place] [phone] May, [facility] [address] [place] [address] Apr, 14 [facility] [address] [place], [place] [id number] [address] [place] [phone] Apr, [facility] [address] [id number] [address] [place] [phone] Mar, [facility] [address] [place] [phone] Mar, 13 [facility] [address] [place], [place] [id number] [address] [place] [phone] Feb, [facility] [address] [place] [phone] Feb, 13 [facility] [place] [address] [place] [phone] Jan, 13 [id number] [place] [phone] Jan, [facility] [address] [place] [phone] Jan, 13 [facility] [address] [place] [id number] [address] [place] [phone] Jan, [facility] [place] [address] [place] [phone] Jan, 13 [facility] [place] [address] [place] [phone] Jan, 13 [facility] [place] [address] [place] [phone] Nov, 13 [facility] [place] [address] [place] [phone] Nov, 13 [facility] [place] [address] [place] [phone] Nov, 13 IMMUNIZATIONS No Known Immunizations SOCIAL HISTORY Never Assessed REASON FOR VISIT Fever x2 day body aches w/ cough .. elamfu/ma, flu gabby sym PLAN OF CARE Activity Details Follow Up if not improving with PCP or reg follow up Reason: VITAL SIGNS Height 74 in 2018-06-23 Weight 282 lbs 2018-06-23 Temperature 98.9 degrees Fahrenheit 2018-06-23 Heart Rate 84 bpm 2018-06-23 Respiratory Rate 20 2018-06-23 Oximetry 98 % 2018-06-23 BMI 36.2 kg/m2 2018-06-23 Blood pressure systolic 130 mmHg 2018-06-23 Blood pressure diastolic 70 mmHg 2018-06-23 MEDICATIONS Medication Instructions Dosage Frequency Start Date End Date Duration S shai Lisinopril-Hydrochlorothiazide 10-12.5 mg take 1 tablet by oral route once daily August, Active Phentermine HCl 37.5 MG Orally Once a day 1 capsule 24h May, 30 days Active Pravachol 40 mg take 1 tablet (40 mg) by oral route on ce daily at bedtime Jan, Active Alprazolam 0.5 mg take 1 tablet by Ora l route 1 time per day PRN at HS for sleep Jan, Active Aspirin 81 mg chew 1 tablet (81 mg) by oral route once daily Jan, Active Bystolic 5 mg take 1 tablet (5 mg) by oral route once daily Jan, Active Ondansetron 4 MG Orally every 8 hrs 1 tablet on the tong ue and allow to dissolve as needed 8h Jun, 10 days Active Azithromycin 250 MG Orally Once a day 2 tablets on the fi rst day, then 1 tablet daily for 4 days 24h Jun, 5 day(s) Active trazodone 100 mg 0.5-1 Tablet by Oral route 1 time per day PRN at HS for sleep May, Active Hydrocodone-Acetaminophen 5-325 mg Orally BID take 1 tablet by Oral route every 6 hours as needed for pain PRN 12h Jun, 30 days Active RESULTS Name Result Date Reference Range INFLUENZA A & B (IN HOUSE) 2018-06-23 INFLUENZA A pos INFLUENZA B neg Control pass Lot # [id number] Exp date 02/04/2019 PROCEDURES Procedure Date Ordered Result Body Site INFLUENZA ASSAY W/OPTIC June 23, 2018 INSTRUCTIONS MEDICATIONS ADMINISTERED No Known Medications MEDICAL [...]
--- OUTSIDE RECORDS SUMMARY | 2019-09-08 07:53 | XMS REPORT | Continuity of Care Document ---
Demographics Preferred Language Unknown Marital Status Unknown Synagogue Affiliation Unknown Race Unknown Ethnic Group Unknown Author Organization Unknown Address Unknown Phone Unavailable Allergies Active Description Code Type Severity Reaction Onset Reported/Identified Relationship to Patient Clinical Status Yes No Known Drug Allergies [id number] N/A N/A Yes No Allergy Information Available [id number] Drug Allergy Unknown N/A 020 Medications There is no data. Problems Date Dx Coded Attending Type Code Diagnosis Diagnosed By 02/03/2013 ED SANTANA DO 272.4 HYPERLIPIDEMIA 02/03/2013 ED SANTANA DO 401.1 HYPERTENSION, BENIGN ESSENTIAL 02/03/2013 ED SANTANA DO K 723.1 CERVICALGIA 02/03/2013 ED SANTANA DO 724.2 BACK PAIN, LOWER 02/03/2013 ED SANTANA DO K V04.81 FLU SHOT 02/03/2013 SCOTT RIVERA MD 272.4 HYPERLIPIDEMIA 02/03/2013 SCOTT RIVERA MD 401.1 HYPERTENSION, BENIGN ESSENTIAL 02/03/2013 SCOTT RIVERA MD 723.1 CERVICALGIA 02/03/2013 SCOTT RIVERA MD 724.2 BACK PAIN, LOWER 02/03/2013 SCOTT RIVERA MD V04.8 1 FLU SHOT 08/24/2019 NANDA OSORIO MD Ot E78. 2 MIXED HYPERLIPIDEMIA 08/24/2019 NANDA OSORIO MD Ot I10 ESSENTIAL (PRIMARY) HYPERTENSION 08/24/2019 NANDA OSORIO MD Ot I49. 3 VENTRICULAR PREMATURE DEPOLARIZATION 08/24/2019 NANDA OSORIO MD Ot Z72. 0 TOBACCO USE 08/25/2019 NANDA OSORIO MD Ot E78. 2 MIXED HYPERLIPIDEMIA 08/25/2019 NANDA OSORIO MD Ot I10 ESSENTIAL (PRIMARY) HYPERTENSION 08/25/2019 NANDA OSORIO MD Ot I49. 3 VENTRICULAR PREMATURE DEPOLARIZATION 08/25/2019 NANDA OSORIO MD Ot Z72. 0 TOBACCO USE 09/01/2019 NANDA OSORIO MD Ot E78. 2 MIXED HYPERLIPIDEMIA 09/01/2019 NANDA OSORIO MD Ot I10 ESSENTIAL (PRIMARY) HYPERTENSION 09/01/2019 NANDA OSORIO MD Ot I49. 3 VENTRICULAR PREMATURE DEPOLARIZATION 09/01/2019 NANDA OSORIO MD Ot Z72. 0 TOBACCO USE 09/03/2019 NANDA OSORIO MD, Ot E78. 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 9 CHRONIC ISCHEMIC HEART DISEASE, UNSPECIF 09/03/2019 NANDA OSORIO MD, Ot I49. 3 VENTRICULAR PREMATURE DEPOLARIZATION 09/03/2019 NANDA OSORIO MD, Ot I51. 89 OTHER ILL-DEFINED HEART DISEASES 09/03/2019 NANDA OSORIO MD, Ot Z72. 0 TOBACCO USE Procedures Code Description [place] [address] ROUT INE VENIPUNCTURE 02/17/2013 14223 CMP 02/17/2013 92567 LIPI D PANEL 02/17/2013 09982 CBC 02/17/2013 Results Test Result Range LIPID PANEL - 08/12/18 11:39 CHOLESTEROL, TOTAL 170 mg/dL <200 HDL CHOLESTEROL 50 mg/dL >40 TRIGLYCERIDES 191 mg/dL <150 LDL-CHOLESTEROL 91 mg/dL (calc) NRG CHOL/HDLC RATIO 3.4 (calc) <5.0 NON HDL CHOLESTEROL 120 mg/dL (calc) <13 0 [facility] - 08/12/18 11:39 GLUCOSE 91 mg/dL 65-99 UREA NITROGEN (BUN) 15 mg/dL 7-25 CREATININE 1.24 mg/dL 0.70-1.25 eGFR NON-AFR. NORWEGIAN 61 mL/min/1.73m2 > OR = 60 eGFR 70 mL/min/1.73m2 > OR = 60 BUN/CREATININE RATIO NOT APPLICABLE (calc) 6-22 SODIUM 143 mmol/L 135-146 POTASSIUM 4.1 mmol/L 3.5-5.3 CHLORIDE 105 mmol/L 98-110 CARBON DIOXIDE 28 mmol/L 20-32 CALCIUM 9.6 mg/dL 8.6-10.3 PROTEIN, TOTAL 7.2 g/dL 6.1-8.1 ALBUMIN 4.4 g/dL 3.6-5.1 GLOBULIN 2.8 g/dL (calc) 1.9-3.7 ALBUMIN/GLOBULIN RATIO 1.6 (calc) 1.0-2. 5 BILIRUBIN, TOTAL 0.4 mg/dL 0.2-1.2 ALKALINE PHOSPHATASE 84 U/L 40-115 AST 18 U/L 10-35 ALT 16 U/L 9-46 CBC - 08/12/18 11:39 WHITE BLOOD CELL COUNT 6.8 Thousand/uL 3 .8-10.8 RED BLOOD CELL COUNT 4.57 Million/uL 4.2 0-5.80 HEMOGLOBIN 14.4 g/dL 13.2-17.1 HEMATOCRIT 41.8 % 38.5-50.0 MCV 91.5 fL 80.0-100.0 MCH 31.5 pg 27.0-33.0 MCHC 34.4 g/dL 32.0-36.0 RDW 13.3 % 11.0-15.0 PLATELET COUNT 237 Thousand/uL 140-400 MPV 11.1 fL 7.5-12.5 ABSOLUTE NEUTROPHILS 4141 cells/uL 1500- 7800 ABSOLUTE LYMPHOCYTES 1809 cells/uL 850-3 900 ABSOLUTE MONOCYTES 517 cells/uL 200-950 ABSOLUTE EOSINOPHILS 286 cells/uL 15-500 ABSOLUTE BASOPHILS 48 cells/uL 0-200 NEUTROPHILS 60.9 % NRG LYMPHOCYTES 26.6 % NRG MONOCYTES 7.6 % NRG EOSINOPHILS 4.2 % NRG BASOPHILS 0.7 % NRG VITAMIN B12 - 08/12/18 11:39 VITAMIN B12 478 pg/mL 200-1100 Encounters ACCT No. Visit Date/Time Discharge Status Pt. Type Provider Facility Loc./Unit Complaint [id number] 09/09/2017 12:55:19 Document Registration [id number] 09/01/2019 06:55:00 23:59:59 CLS Outpatient NANDA OSORIO MD [facility] CARD ESSENTIAL HYPERTENSION,HYPERLIPIDEMIA,TOBACCO USER [id number] 08/20/2019 11:37:00 23:59:59 CLS Outpatient NANDA OSORIO MD [facility] CARD ESSENTIAL HYPERTENSION,HYPERLIPIDEMIA,TOBACCO USER [id number] 09/08/2019 10:00:00 P EN Preadmit NANDA OSORIO MD [facility] CATH ABN STRESS TEST [id number] 04/01/2019 08:20:00 04/01/2019 23:59:5 9 CLS Outpatient XENA CURRIE [facility] [id number] 08/12/2018 10:45:00 Document Registration [id number] 09/26/2017 15:38:14 09/26/2017 23:59: 59 CLS Outpatient Oswaldo Delatorre [id number] 02/17/2013 08:02:00 02/17/2013 23:59: 59 CLS Outpatient MIGUEL CHO, SCOTT Carey [id number] 02/03/2013 10:23:00 02/03/2013 23:59: 59 CLS Outpatient ED SANTANA DO
[2019-09-08 08:15] LABS: HEMOGLOBIN 14.5 G/DL (13.3-17.7); MEAN PLATELET VOLUME 10.6 FL (7.4-10.4); WHITE BLOOD COUNT 6.6 10^3/uL (4.3-11.0)
[2019-09-08 08:27] LABS: INR 0.9 (0.8-1.4); PROTHROMBIN TIME PATIENT 12.4 SEC (12.2-14.7)
[2019-09-08 08:35] LABS: ALANINE AMINOTRANSFERASE 29 U/L (0-55); ALBUMIN 4.2 GM/DL (3.2-4.5); ALKALINE PHOSPHATASE 79 U/L (40-136); BILIRUBIN,TOTAL 0.4 MG/DL (0.1-1.0); BUN/CREATININE RATIO 14; CALCIUM 9.1 MG/DL (8.5-10.1); CARBON DIOXIDE 22 MMOL/L (21-32); CHLORIDE 111 MMOL/L (98-107); CHOLESTEROL 168 MG/DL (< 200); CREATININE SERUM 1.15 MG/DL (0.60-1.30); GFR ESTIMATED > 60; GLUCOSE 107 MG/DL (70-105); HDL CHOLESTEROL 50 MG/DL (40-60); POTASSIUM 4.2 MMOL/L (3.6-5.0); SODIUM 142 MMOL/L (135-145); TOTAL PROTEIN 7.4 GM/DL (6.4-8.2); TRIGLYCERIDES 110 MG/DL (<150); VLDL CHOLESTEROL 22 MG/DL (5-40)
[2019-09-08] MEDS ORDERED: ASPI-586 PO (08:38)
[2019-09-08] MEDS ORDERED: PRAV40TA2 PO (08:38)
[2019-09-08] MEDS ORDERED: VNL75T PO (08:38)
[2019-09-08] MEDS ORDERED: TMSL.4C PO (08:38)
[2019-09-08] MEDS ORDERED: LINA72CA PO (08:38)
[2019-09-08] MEDS ORDERED: HYDR-83 PO (08:38)
[2019-09-08] MEDS ORDERED: CARV25TA PO (08:38)
[2019-09-08] MEDS ORDERED: TRAZ-227 PO (08:38)
--- NOTE | 2019-09-08 08:41 | Diagnostic Imaging Report ---
INDICATION: Dyspnea Portable AP view of the chest is obtained. There is no previous study for comparison. There is mild cardiomegaly and pulmonary venous congestion. Prominent interstitial markings are seen throughout the lungs. There is mild elevation of the left hemidiaphragm. No pneumothorax or consolidation is identified. IMPRESSION: Findings are suggestive of probable mild congestive heart failure. Interstitial markings may reflect edema although background interstitial fibrosis is not excluded. Dictated by: Dictated on workstation # [id number]
--- NOTE | 2019-09-08 09:54 | Cardiac Procedure Note-CS/ASA ---
Pre-Procedure Note Pre-Op Procedure Note H&P Reviewed The H&P was reviewed, patient examined and no changes noted. Date H&P Reviewed: Sep 08, 2019 Time H&P Reviewed: 09:53 Conscious Sedation Pre-Proced Time 09:54 ASA Score 3 For ASA 3 and 4: Consider anesthesia and medical clearance. Also, for patients with a history of failed moderate sedation consider anesthesia. Airway Lungs Heart ASA score ASA 1: a normal healthy patient ASA 2: a patient with a mild systemic disease (mid diabetes, controlled hypertension, obesity x ASA 3: a patient with a severe systemic disease that limits activity (angina, COPD, prior Myocardial infarction) ASA 4: a patient with an incapacitating disease that is a constant threat to life (CHF, renal failure) ASA 5: a moribund patient not expected to survive 24 hrs. (ruptured aneurysm) ASA 6: a declared brain- patient whose organs are being harvested. For emergent operations, add the letter E after the classification Mallampati Classification Grade 3 Sedation Plan Analgesia, Amnesia, Plan communicated to team members, Discussed options with patient/fam, Discussed risks with patient/fam The patient is an appropriate candidate to undergo the planned procedure, sedation, and anesthesia. The patient immediately re-assessed prior to indication. NANDA OSORIO MD Sep 08, 2019 09:54
[2019-09-08 10:06] LABS: BILIRUBIN,URINE NEGATIVE (NEGATIVE); CLARITY,URINE CLEAR; COLOR,URINE YELLOW; GLUCOSE, URINE (UA) NEGATIVE (NEGATIVE); KETONES,URINE NEGATIVE (NEGATIVE); LEUKOCYTE ESTERASE ,URINE NEGATIVE (NEGATIVE); NITRITE,URINE NEGATIVE (NEGATIVE); PH,URINE 5.5 (5-9); PROTEIN,URINE NEGATIVE (NEGATIVE)
[2019-09-08 10:16] LABS: BACTERIA,URINE NEGATIVE /HPF; SQUAMOUS EPITHELIAL CELL,UR RARE /HPF
[2019-09-08] MEDS ORDERED: VERAPAMIL 5 MG/2 ML (CALAN) VIAL IV ONE (11:58)
[2019-09-08] MEDS ORDERED: fentaNYL INJECTION 100 MCG/2 ML AMP ONE ×2 (11:58→12:59)
[2019-09-08] MEDS ORDERED: HEParin 1000 UNIT/ML (10ML VIAL) FOR BOLUS ONE (11:58)
[2019-09-08] MEDS ORDERED: MIDAZOLAM 5 MG/5 ML (VERSED) VIAL ONE (11:58)
[2019-09-08] MEDS ORDERED: NITRO DRIP 25000 MCG/D5W 250 ML IV ONE (11:59)
[2019-09-08] MEDS ORDERED: CLOPIDOGREL 300 MG (PLAVIX) TABLET PO ONE (13:19)
[2019-09-08] MEDS ORDERED: ASPIRIN 325 MG (5 GR) TABLET ONE (13:19)
[2019-09-08] MEDS ORDERED: PATIENT MAY USE OWN MEDS, ALL PO SCH (13:30)
--- NOTE | 2019-09-08 13:32 | Cardiac Cath Report ---
Cardiac Cath Report Physician (s)/Lane Attendant (s) Physician NANDA OSORIO MD Pre-Procedure Diagnosis Pre-Procedure Diagnosis: Coronary artery disease Post-Procedure Note Procedure Start Date: Sep 08, 2019 Name of Procedure: Left heart catheterization Stenting to the circumflex artery Findings/Procedure Note PROCEDURE NOTE: 68-year-old gentleman with history of hypertension, diabetes mellitus, had an abnormal stress test, has been having chest pain, scheduled for cardiac catheterization possible PTCA. After explaining the procedure to the patient, all pros and cons were explained, all questions were answered. The patient signed the consent and then he was placed on the cardiac catheterization laboratory. Groin was prepped SL fashion local anesthesia was used. Sheath placed in the right radial artery, I have difficulty advancing the wire through the radial artery used many Glidewire, TIGER catheter was used, unable to intubate the left system well. Exchange over long wire into JR advanced to the right artery and angiogram was done then I used multiple different EBU guides without success subsequently I proceeded with the right groin approach and placed a 6 Swedish sheath in the right femoral artery, EBU 4.0 was advanced to the left main system angiogram was done then decide to proceed with percutaneous intervention. Patient received total of 7000 units of heparin. BMW wire advanced in the distal circumflex artery. Predilatation with 3 x 20 balloon was done, I was unable to advance the stent. Subsequently advanced a second BMW wire used it as a faisal wire then advanced 3 x 23 MM TASHIA stent expanded to 3.2 mm under 15 gisel, second stent 3 x 18 mm Tashia overlapping proximally expanded to 3.2 mm with excellent results. Angiogram showed good results. FR guide prolapsed to the left ventricular cavity, pressure was measured, pullba ck LV to aorta was done. At the end of the procedure the sheath was removed. Closure device to the groin and to the radial artery FINDINGS: Hemodynamics LV 148/15, end-diastolic of 15 Aorta 144/73 mean of 100 ANATOMY: Left Main was noted to have moderate disease at the distal left main extending t o the proximal circumflex artery Left Anterior Descending is slightly tortuous with mild disease Left Circumflex is moderate in size with 40-50 percent stenosis at the ostium, severe stenosis at the mid and distal segment, complex intervention with deploym ent of 2 overlapping Tashia stent 3 x 23 and 3 x 18 mm expanded to 3.2 mm with excellent results. Right Coronory Artery is dominant artery with mild disease LV Gram was not done, pressure was measured CONCLUSION: 1. Severe stenosis at multiple segment of the circumflex artery complex intervention with using faisal wire then deployment of 2 overlapping Tashia stent 3 x 18 and 3 x 23 mm expanded to 3.2 mm with excellent results. The ostium of the circumflex artery has 40-50 percent stenosis 2. Distal left main stenosis mild to moderate extending to the circumflex 3. Mild tortuosity in the LAD and right coronary artery nonobstructive disease 4. Severe hypertension noted during procedure 5. Normal left ventricular end-diastolic pressure DISCUSSION AND RECOMMENDATION: Maximize medical therapy, continue to monitor the left main stenosis Anesthesia Type: Conscious Sedation Estimated blood loss (mL): 50 ml Contrast Amount: 200 ml Total Radiation Dose: 2562 mGy Post-Procedure Diagnosis Post-operative diagnosis: Chest pain Coronary artery disease Hypertension Hyperlipidemia NANDA OSORIO MD Sep 08, 2019 13:31
[2019-09-08] MEDS ORDERED: ENALAPRILAT 1.25 MG/1 ML (VASOTEC) 1 ML VIAL IV ONE (13:50)
[2019-09-08] MEDS ORDERED: cloNIDine 0.1 MG (CATAPRES) TAB ONE (13:51)
[2019-09-08] MEDS ORDERED: cloNIDine 0.1 MG (CATAPRES) TAB PO ONE (14:00)
[2019-09-08] MEDS ORDERED: HYDROcodone/APAP 5 MG/325 MG (LORTAB) TAB ONE (14:10)
[2019-09-08] MEDS: HYDROcodone/APAP 5 MG/325 MG (LORTAB) TAB PO SCH ×2 (14:13→21:27)
[2019-09-08] MEDS: NS IV 1000 ML 1,000 ML IV SCH ×2 (14:42→22:22)
--- NOTE | 2019-09-08 20:03 | NUR ---
RECEIVED REPORT FROM JANNY SIAAC
[2019-09-08] MEDS ORDERED: traZODone 100 MG (DESYREL) TAB PO SCH (21:00)
[2019-09-08] MEDS ORDERED: SIMvastatin 20 MG (ZOCOR) TAB PO SCH (21:00)
[2019-09-08] MEDS: CARVEDILOL 25MG TABLET PO SCH (21:27)
[2019-09-08] MEDS: VENlafaxine 75 MG (EFFEXOR) TAB PO SCH (21:28)
[2019-09-09] VITALS: BP 121/67
[2019-09-09 04:00] VITALS: BP 125/70
[2019-09-09 05:04] LABS: HEMOGLOBIN 12.7 G/DL (13.3-17.7); MEAN PLATELET VOLUME 10.1 FL (7.4-10.4); RED CELL DISTRIBUTION WIDTH 14.1 % (10.0-14.5); WHITE BLOOD COUNT 6.2 10^3/uL (4.3-11.0)
[2019-09-09 05:24] LABS: BUN/CREATININE RATIO 13; CALCIUM 8.5 MG/DL (8.5-10.1); CARBON DIOXIDE 21 MMOL/L (21-32); CHLORIDE 111 MMOL/L (98-107); CREATININE SERUM 0.96 MG/DL (0.60-1.30); GFR ESTIMATED > 60; GLUCOSE 99 MG/DL (70-105); POTASSIUM 3.8 MMOL/L (3.6-5.0); SODIUM 141 MMOL/L (135-145)
[2019-09-09] MEDS ORDERED: CLOP75TA28 PO (06:55)
--- NOTE | 2019-09-09 06:56 | Discharge Inst-Post CATH ---
Discharge Inst-CATH/EP Problems Reviewed?: Yes Post Cardiac Cath/EP D/C Inst Follow Up/Plan Appointment with Dr Christianson's office in 2-4 weeks <b>CARDIAC CATH/EP PROCEDURE DISCHARGE INSTRUCTIONS</b> ACTIVITY * Go Home directly and rest. * Limit activity of the leg (or wrist if it was used) for 7 days including aerobics, swimming, jogging, bicycling, etc. * Restrict stair-climbing for 7 days if possible, if not, climb up with your non-cath leg, then bring together on the same step. * Avoid lifting, pushing, pulling or excessive movement of the affected extremity for 7 days. * Customary sexual activity may be resumed after 2 days-use caution not to use a position that strains or causes pain to the affected extremity. * No driving for 24 hours. * NO SMOKING. * Avoid straining for bowel movements for 7 days. * Gentle walking on level ground is allowed. * Returning to work will depend on the type of procedure and the results. Your doctor will discuss this with you. CALL YOUR DOCTOR FOR ANY OF THE FOLLOWING: *If bleeding from the puncture site occurs- Apply gentle pressure to site with clean cloth and call your doctor or EMS. * If a knot or lump forms under the skin, increases in size, or causes pain. * If bruising appears to be worsening or moving further down your leg instead of disappearing. * Temperature above 101 F. CARE OF YOUR GROIN INCISION; * Bruising or purple discoloration of the skin near the puncture site is common. * You may shower only, no bathtub bathing for 5 days. Be careful to avoid slipping as your leg may feel stiff. * If a closure device was used on your femoral artery, please see the attached guide regarding care of the device and your leg. * Leave dressing on FOR 24 hours. CARE OF YOUR WRIST INCISION; * Bruising or purple discoloration of the skin near the puncture site is common. * You may shower. * DO NOT submerge wrist. * Leave dressing on FOR 24 hours. NANDA CHRISTIANSON MD Sep 09, 2019 06:56
[2019-09-09 07:32] VITALS: BP 124/74
[2019-09-09] MEDS: HYDROcodone/APAP 5 MG/325 MG (LORTAB) TAB PO SCH (07:54)
[2019-09-09] MEDS: VENlafaxine 75 MG (EFFEXOR) TAB PO SCH (07:55)
[2019-09-09] MEDS: CARVEDILOL 25MG TABLET PO SCH (07:55)
[2019-09-09] MEDS: NS IV 1000 ML 1,000 ML IV SCH (08:01)
[2019-09-09] MEDS ORDERED: TAMSULOSIN 0.4 MG (FLOMAX) CAP PO SCH (09:00)
[2019-09-09] MEDS ORDERED: NON-FORMULARY MEDICATION 1 EA EA (Linaclotide (Linzess) 72 MCG) PO SCH (09:00)
[2019-09-09] MEDS ORDERED: ASPIRIN E.C. 81 MG (ECOTRIN) TAB PO SCH ×2 (09:00)
[2019-09-09] MEDS ORDERED: CLOPIDOGREL 75 MG (PLAVIX) TABLET PO SCH ×2 (09:00)
--- NOTE | 2019-09-09 09:09 | Cardiology Progress Note ---
Subjective Date Seen by Provider: Sep 09, 2019 Time Seen by Provider: 09:08 Subjective/Events-last exam Patient is laying down in bed, feeling well, mild discomfort in the groin. Mild bruising Review of Systems General: No Chills, No Night Sweats, No Fatigue, No Malaise, No Appetite, No Ot her HEENT: No Head Aches, No Visual Changes, No Eye Pain, No Ear Pain, No Dysp hasia, No Sinus Congestion, No Post Nasal Drip, No Sore Throat, No Other Pulmonary: No Dyspnea, No Cough, No Pleuritic Chest Pain, No Other Cardiovascular: No: Chest Pain, Palpitations, Orthopnea, Paroxysmal Noc. Dyspnea, Edema, Lt Headedness, Other Objective-Cardiology Exam Last Set of Vital Signs Vital Signs 09/09/19 09/09/19 07:32 08:33 Temp 36.4 Pulse 62 Resp 19 B/P (MAP) 124/74 (91) Pulse Ox 97 O2 Delivery Room Air Capillary Refill : Less Than 3 Seconds General: Alert, Oriented X3, Cooperative HEENT: Atraumatic, PERRLA Neck: Supple, No JVD, No Thyromegaly Lungs: Clear to Auscultation, Normal Air Movement Heart: Regular Rate, Normal S1, Normal S2, No Murmurs Abdomen: Normal Bowel Sounds, Soft, No Tenderness, No Hepatosplenomegaly, No Masses Extremities: No Clubbing, No Cyanosis, No Edema, Normal Pulses, No Tenderness/Swelling Skin: No Rashes, No Breakdown, No Significant Lesion Neuro: Normal Gait, Normal Speech, Strength at 5/5 X4 Ext, Normal Tone, Sensation Intact Psych/Mental Status: Mental Status NL, Mood NL Results Lab Laboratory Tests 09/09/19 04:50 A/P-Cardiology Admission Diagnosis Coronary artery disease Hypertension Hyperlipidemia Diabetes mellitus Assessment/Plan Coronary artery disease, status post stenting to the circumflex artery with 2 stents with excellent results. Currently asymptomatic, groin is healing well. Hypertension, continue on current medication monitor blood pressure Hyperlipidemia, continue on current medication monitor Diabetes mellitus, followed and managed by primary care physician NANDA OSORIO MD Sep 09, 2019 9:09 am
--- NOTE | 2019-09-09 10:00 | NUR ---
MARINA BLACK demonstrates understanding of discharge instructions and accurately returns instructions upon questioning. Copy of Post-Discharge Instructions and Medication Discharge Instructions given to pt. MARINA BLACK is able to manage continuing needs after discharge. Patients belongings returned to pt. Skin dry and intact; no breakdown noted. Patient discharged from [facility]- on 09/09/19 at 1000. MARINA BLACK left floor via wc, accompanied by staff/family.
== END 2019-09-09 10:00 | disposition home or self-care (01) ==
LOC: CATH 07:32 → CSD 14:00 → CATH 09-09 10:00
PROVIDERS: ATTEND Internal Medicine Cardiovascular Disease
DX: I25.10 Atherosclerotic heart disease of native coronary artery without angina pectoris (principal); I77.1 Stricture of artery; I10 Essential (primary) hypertension; I49.3 Ventricular premature depolarization; E11.9 Type 2 diabetes mellitus without complications; E66.9 Obesity, unspecified; E78.2 Mixed hyperlipidemia; K59.09 Other constipation; M48.061 Spinal stenosis, lumbar region without neurogenic claudication; G93.2 Benign intracranial hypertension; F17.210 Nicotine dependence, cigarettes, uncomplicated; Z79.899 Other long term (current) drug therapy; Z79.82 Long term (current) use of aspirin; Z68.41 Body mass index [BMI] 40.0-44.9, adult; Z80.9 Family history of malignant neoplasm, unspecified
CPT/HCPCS: 36415; 71045; 80048; 80053; 80061; 81000; 85027; 85610; 85730; 87081; 93005; 93458

== ENCOUNTER → 2019-10-21 | Outpatient (CLI) | payer MEDICARE ==
[~2019-10-21] MED LIST changes: +ASPI-586 PO; +CARV25TA PO; -CATHETER FLUSH 10 ML SYR IV PRN; +CLOP75TA28 PO; +HYDR-83 PO; +LINA72CA PO; +PRAV40TA2 PO; -REGADENOSON 0.4 MG/5 ML SYR (LEXISCAN) IV ONE; +TMSL.4C PO; +TRAZ-227 PO; +VNL75T PO
== END ==
LOC: LABNPT 07:00
PROVIDERS: ATTEND Internal Medicine Cardiovascular Disease
DX: Z01.818 Encounter for other preprocedural examination (principal); Z20.828 Contact with and (suspected) exposure to other viral communicable diseases
CPT/HCPCS: 87635

== ENCOUNTER 2019-10-25 19:21 | Outpatient (CLI) | payer MEDICARE | END 2019-10-26 07:05 | disposition home or self-care (01) | LOC: SLEEP 19:21 | PROVIDERS: ATTEND Internal Medicine Cardiovascular Disease | DX: G47.33 Obstructive sleep apnea (adult) (pediatric) (principal); I49.9 Cardiac arrhythmia, unspecified; I10 Essential (primary) hypertension; E78.2 Mixed hyperlipidemia; E66.9 Obesity, unspecified; I49.3 Ventricular premature depolarization; N40.0 Benign prostatic hyperplasia without lower urinary tract symptoms; Z20.828 Contact with and (suspected) exposure to other viral communicable diseases; Z98.890 Other specified postprocedural states; Z95.5 Presence of coronary angioplasty implant and graft; Z90.49 Acquired absence of other specified parts of digestive tract; Z68.39 Body mass index [BMI] 39.0-39.9, adult | CPT/HCPCS: 95810 ==

== ENCOUNTER → 2020-01-27 | Outpatient (CLI) | payer MEDICARE ==
[~2020-01-27] MED LIST changes: +ACHD5005 PO; -HYDR-83 PO
[2020-01-27 10:25] LABS: BILIRUBIN,TOTAL 0.3 MG/DL (0.1-1.0); CALCIUM 9.1 MG/DL (8.5-10.1); CREATININE SERUM 1.36 MG/DL (0.60-1.30); POTASSIUM 4.6 MMOL/L (3.6-5.0)
[2020-01-27 10:26] LABS: ALBUMIN 4.3 GM/DL (3.2-4.5); TOTAL PROTEIN 7.1 GM/DL (6.4-8.2)
== END ==
LOC: LAB FS 09:48
PROVIDERS: ATTEND Family Medicine
DX: I10 Essential (primary) hypertension (principal)
CPT/HCPCS: 36415; 80053; 80061

== ENCOUNTER → 2020-03-27 | Outpatient (CLI) | payer MEDICARE ==
[~2020-03-27] VITALS: Ht 187 cm; Wt 136.0 kg
[~2020-03-27] MED LIST changes: +CATHETER FLUSH 10 ML SYR IV PRN
[2020-03-27 09:11] VITALS: BP 156/103
== END ==
LOC: CARD 08:30
PROVIDERS: ATTEND Physician Assistant
DX: I25.10 Atherosclerotic heart disease of native coronary artery without angina pectoris (principal)
CPT/HCPCS: 78452; 93017; 93306

== ENCOUNTER → 2020-11-17 | Outpatient (CLI) | payer MEDICARE ==
[~2020-11-17] MED LIST changes: -CATHETER FLUSH 10 ML SYR IV PRN
[2020-11-17 10:43] LABS: BILIRUBIN,TOTAL 0.3 MG/DL (0.1-1.0); CALCIUM 9.4 MG/DL (8.5-10.1); CREATININE SERUM 1.15 MG/DL (0.60-1.30); POTASSIUM 4.4 MMOL/L (3.6-5.0)
[2020-11-17 10:44] LABS: ALBUMIN 4.1 GM/DL (3.2-4.5)
== END ==
LOC: LAB FS 09:33
PROVIDERS: ATTEND Family Medicine
DX: E78.5 Hyperlipidemia, unspecified (principal); Z12.5 Encounter for screening for malignant neoplasm of prostate
CPT/HCPCS: 36415; 80053; 80061; 84153

== ENCOUNTER → 2021-01-15 | Outpatient (CLI) | payer MEDICARE | END | disposition home or self-care (01) | LOC: PREOP 06:43 | PROVIDERS: ATTEND Surgery | DX: Z01.818 Encounter for other preprocedural examination (principal) ==

== ENCOUNTER 2021-02-11 09:43 | Emergency (ER) | payer MEDICARE ==
[~2021-02-11] VITALS: Ht 187 cm; Wt 136.0 kg
--- NOTE | 2021-02-11 10:33 | Diagnostic Imaging Report ---
Indication: Fall, pain COMPARISON: 09/08/2019 TECHNIQUE: 3 radiographs left-sided ribs dated 02/11/2021 FINDINGS: No displaced or healing rib fracture. Degenerative changes noted within the spine. No large-volume pleural effusion or pneumothorax. IMPRESSION: No displaced or healing rib fracture. No large-volume pleural effusion or pneumothorax. Dictated by: Dictated on workstation # [id number]
[2021-02-11 10:36] VITALS: BP 152/89
--- NOTE | 2021-02-11 10:44 | ED Chest Pain ---
General Chief Complaint: Chest Wall Stated Complaint: LT RIB PAIN; FALL Nursing Triage Note: PT TRIPPED OVER A PARKING CURB ON FRIDAY AND LANDED ON HIS LEFT SIDE. HE C/O LEFT RIB PAIN. Source: patient Exam Limitations: no limitations History of Present Illness Date Seen by Provider: Feb 11, 2021 Time Seen by Provider: 09:44 Initial Comments Patient is a 70-year-old male who presents with left chest wall pain/injury after falling in a parking lot 2 days ago. Patient states he tripped in a parking cement block and landed on his left side. His left arm cushion his chest and ribs. Reports initial wrist and arm pain which is gradually improved but complains of persistent lower axillary chest wall pain worse with deep breathing palpation. He did report feeling a ripping sensation at the time of the injury. Pain is moderate and worse with palpation and deep breathing. He took hydrocodone today with some relief. Denies shortness of breath. No fever cough, sore throat. No abdominal pain. No other acute symptoms or complaints. Patient did not hit his head. He is on Plavix and has a history of coronary disease. No other acute symptoms or complaints. Timing/Duration: 2-3 days Severity/Quality: other Location: other Radiation: other Activities at Onset: other Prior CP/Workup: other Modifying Factors: improves with other Allergies and Home Medications Allergies Coded Allergies: No Known Drug Allergies (Unverified , 09/08/19) Patient Home Medication List Home Medication List Reviewed: Yes Aspirin (Aspir 81) 81 Mg Tablet.dr, 81 MG PO DAILY, (Reported) Entered as Reported by: PAL STEVEN on 09/08/19 0838 Carvedilol (Carvedilol) 25 Mg Tablet, 25 MG PO BID, (Reported) Entered as Reported by: PAL STEVEN on 09/08/19 0838 Clopidogrel Bisulfate (Clopidogrel) 75 Mg Tablet, 75 MG PO DAILY Prescribed by: NANDA OSORIO on 09/09/19 0655 Hydrocodone/Acetaminophen (Hydrocodone-Acetamin 5-325 mg) 1 Each Tablet, 1 EACH PO BID, (Reported) Entered as Reported by: PAL STEVEN on 09/08/19 0838 Linaclotide (Linzess) 72 Mcg Capsule, 72 MCG PO DAILY, (Reported) Entered as Reported by: PAL STEVEN on 09/08/19837 Pravastatin Sodium (Pravastatin Sodium) 40 Mg Tablet, 40 MG PO DAILY, (Reported) Entered as Reported by: PAL STEVEN on 09/08/19837 Tamsulosin HCl (Flomax) 0.4 Mg Cap, 0.4 MG PO DAILY, (Reported) Entered as Reported by: PAL STEVEN on 09/08/19837 Trazodone HCl (Trazodone HCl) 100 Mg Tablet, 100 MG PO HS, (Reported) Entered as Reported by: PAL STEVEN on 09/08/19837 Venlafaxine HCl (Venlafaxine HCl) 75 Mg Tab, 75 MG PO TID, (Reported) Entered as Reported by: PAL STEVEN on 09/08/19837 Review of Systems Review of Systems Constitutional: see HPI EENTM: See HPI Respiratory: See HPI Cardiovascular: See HPI Gastrointestinal: See HPI Genitourinary: See HPI Musculoskeletal: see HPI Skin: see HPI Psychiatric/Neurological: See HPI Endocrine: See HPI Hematologic/Lymphatic: See HPI Past Bjrrbsd-Wltzbv-Kwcacz Hx Patient Social History Tobacco Use?: Yes Tobacco type used: Cigarettes Smoking Status: Current Someday Smoker Use of E-Cig and/or Vaping dev: No Substance use?: No Alcohol Use?: No Pt feels they are or have been: No Immunizations Up To Date Tetanus Booster (TDap): Unknown Past Medical History Appendectomy, Bowel Surgery, Joint Replacement, Orthopedic Respiratory: No Hypertension Neurological: No Genitourinary: No Gastrointestinal: No Cancer: No Physical Exam Vital Signs Vital Signs - First Documented 02/11/21 09:47 Temp 35.9 Pulse 74 Resp 18 B/P (MAP) 152/89 (110) Pulse Ox 94 O2 Delivery Room Air Capillary Refill : Less Than 3 Seconds Height, Weight, BMI Height: '" Weight: lbs. oz. kg; 38.00 BMI Method: General Appearance: No Apparent Distress, WD/WN HEENT: PERRL/EOMI, Pharynx Normal Neck: Non Tender, Supple Respiratory: Lungs Clear, Normal Breath Sounds, Other (Left lower chest wall pain/tenderness, no flail chest, subcutaneous air.) Cardiovascular: Regular Rate, Rhythm Gastrointestinal: Non Tender, Soft; No Tenderness (No left upper quadrant pain.); Other (Obesity compromising exam) Extremity: Normal Capillary Refill, Normal Range of Motion, Other (Left shoulder, arm, elbow, forearm wrist. No tenderness swelling or bruising or decreased range of motion) Progress/Results/Core Measures Results/Orders My Orders Orders - GRACIELA SCHULTZ DO Ribs 2-3 View Left (02/11/21 09:53) Vital Signs/I&O 02/11/21 02/11/21 09:47 10:36 Temp 35.9 35.9 Pulse 74 74 Resp 18 18 B/P (MAP) 152/89 (110) 152/89 Pulse Ox 94 94 O2 Delivery Room Air Room Air Blood Pressure Mean: 110 Departure Communication (Admissions) Chest x-ray/left rib series: No obvious displaced rib fracture. Patient with left chest wall injury without obvious displaced rib fracture. No imaging studies recommended at this time. Recommendations are watchful waiting with close PCP follow-up for further monitoring and treatment. Return precautions reviewed. Patient verbalizes understanding agreement with discharge plan and instructions Impression Primary Impression: Chest wall injury Disposition: 01 HOME, SELF-CARE Condition: Stable Departure-Patient Inst. Referrals: XENA CURRIE MD (PCP/Family) Primary Care Physician Patient Instructions: Blunt Chest Trauma Add. Discharge Instructions: You were evaluated in the emergency department for chest wall injury. X-rays of the ribs were performed and did not show evidence of rib or lung injury. Please take hydrocodone for pain along with stool softener and follow-up with your PCP in 3 to 5 days for reevaluation. Return to the ED if new or worsening symptoms All discharge instructions reviewed with patient and/or family. Voiced understanding. GRACIELA SCHULTZ DO Feb 11, 2021 10:44
[2021-02-11] MEDS ORDERED: ACHD5005 PO (11:14)
== END 2021-02-11 11:17 | disposition home or self-care (01) ==
LOC: EDUNIT# 09:43 → ER FS 09:45
DX: S29.9XXA Unspecified injury of thorax, initial encounter (principal); I10 Essential (primary) hypertension; F17.210 Nicotine dependence, cigarettes, uncomplicated; Z79.01 Long term (current) use of anticoagulants; Z79.82 Long term (current) use of aspirin; W01.0XXA Fall on same level from slipping, tripping and stumbling without subsequent striking against object, initial encounter
CPT/HCPCS: 71100

== ENCOUNTER → 2021-07-10 | Outpatient (CLI) | payer MEDICARE ==
[~2021-07-10] MED LIST changes: +ASPI-1238 PO; +ATOR20TA66 PO; +BUPR150T9 PO; +FINA5TAB6 PO; +FLUT9.9S NS; +GABA300S2 PO; +LISI1TAB48 PO; +MONT-40 PO
[2021-07-10 09:19] LABS: BILIRUBIN,TOTAL 0.3 MG/DL (0.1-1.0); CALCIUM 9.4 MG/DL (8.5-10.1); CREATININE SERUM 1.33 MG/DL (0.60-1.30); POTASSIUM 4.4 MMOL/L (3.6-5.0)
[2021-07-10 09:20] LABS: ALBUMIN 4.3 GM/DL (3.2-4.5); TOTAL PROTEIN 7.3 GM/DL (6.4-8.2)
== END ==
LOC: LAB FS 08:23
PROVIDERS: ATTEND Family Medicine
DX: I10 Essential (primary) hypertension (principal); E53.8 Deficiency of other specified B group vitamins
CPT/HCPCS: 36415; 80053; 80061; 82607

== ENCOUNTER 2021-10-03 06:01 | Outpatient (CLI) | payer MEDICARE ==
[~2021-10-03] VITALS: Ht 190.5 cm; Wt 139.7 kg
[2021-10-03] MEDS ORDERED: GABA300C PO (09:19)
[2021-10-03] MEDS ORDERED: CLOP75TA28 PO (09:19)
== END 2021-10-03 09:23 | disposition home or self-care (01) ==
LOC: PREOP 06:01
PROVIDERS: ATTEND Surgery
DX: Z01.818 Encounter for other preprocedural examination (principal)

== ENCOUNTER 2021-10-12 09:56 | Day surgery (SDC) | payer MEDICARE ==
[~2021-10-12] VITALS: Ht 190.5 cm; Wt 139.7 kg
[~2021-10-12 09:56] MED LIST changes: +GABA300C PO
[2021-10-12] MEDS ORDERED: LACTATED RINGERS 1,000 ML IV STA (10:12)
--- NOTE | 2021-10-12 10:18 | Progress Note-Pre Operative ---
Pre-Operative Progress Note H&P Reviewed The H&P was reviewed, patient examined and no changes noted. Time Seen by Provider: 10:16 Date H&P Reviewed: Oct 12, 2021 Time H&P Reviewed: 10:16 Pre-Operative Diagnosis: +ColYEN Jacobo DO Oct 12, 2021 10:18
[2021-10-12 10:30] VITALS: BP 133/85
[2021-10-12] MEDS ORDERED: MIDAZOLAM 2 MG/2 ML (VERSED) VIAL ONE (11:28)
[2021-10-12] MEDS ORDERED: PROPOFOL INJECTION 50 ML IV ONE (11:29)
[2021-10-12 12:05] VITALS: BP 140/81
--- NOTE | 2021-10-12 12:05 | Progress Note-Post Operative ---
Post-Operative Progess Note Surgeon (s)/Dairy Equipment Mechanic (s) Surgeon YEN BECERRIL DO Dairy Equipment Mechanic: TRE Cruz Pre-Operative Diagnosis +Cologuard Post-Operative Diagnosis Polyps Diveticula int hemorrhoids Procedure & Operative Findings Date of Procedure 10/12/21 Procedure Performed/Findings Colonoscopy with snare polypectomy PROCEDURE NOTE: After informed consent was obtained, the patient was brought to the endoscopy suite, placed in bed in left lateral decubitus position. He was administered IV sedation by the ACTIVITY THERAPY TEACHER who then monitored his vitals the entire time, heart rate, blood pressure and pulse ox and the scope was inserted. On the way in, in the Sigmoid colon found a polyp and elected to remove with the snare. Also noted some diverticula and took a picture of them. Pushed all the way to about 130 cm and pushed into the cecum, took a picture of appendiceal orifice and then noted another polyp her; did another snare polpectomy. Next, slowly withdrew the scope insufflating to look circumferentially at the h[place] starting in the cecum, up the ascending colon to the hepatic flexure, then down the transverse colon to the splenic flexure. Continued into the descending colon, down the sigmoid and then into the rectal vault where I found another polyp and then removed it with the snare. Finally retroflexed the scope and took picture of the internal hemorrhoids; could see a few more small flat polyps in the rectum. The patient tolerated the procedure. He was recovered in endoscopy suite. Recommended for repeat colonoscopy in 3 years because of the number of polyps. Anesthesia Type IV sedation by Anesthesiologist Estimated Blood Loss Estimated blood loss (mL): scant Specimens/Packing Specimens Removed sigmoid polyp rectal polyp cecal polyp YEN BECERRIL DO Oct 12, 2021 12:05
--- NOTE | 2021-10-12 12:06 | Endoscopy Discharge Instruct ---
Endo Procedure/Findings Findings 1.: Polyp 2.: Diverticulosis 3.: Internal Hemorrhoids Discharge Instructions - Activity: You might feel a little sleepy until tomorrow. This is due to the medicine you received to relax you. Until tomorrow, you should: NOT drive a car, operate machinery or power tools. NOT drink any alcoholic beverages. NOT make any important decisions or sign importortant papers. Do not return to work until tomorrow, unless otherwise instructed. Resume previous activities tomorrow. Diet: Start by taking liquids. If you tolerate liquids, advance to solid food. 1.: Colonscopy in 3 years Notify Physician - If you experience excessive bleeding, unusual abdominal pain, fever, or chest pain, contact your doctor immediately. YEN BECERRIL DO Oct 12, 2021 12:06
[2021-10-12 12:08] VITALS: BP 153/81
[2021-10-12 12:31] VITALS: BP 153/81
--- NOTE | 2021-10-12 13:02 | Anesthesia-General Post-Op ---
MAC Patient Condition Mental Status/LOC: Same as Preop Cardiovascular: Satisfactory Nausea/Vomiting: Absent Respiratory: Satisfactory Pain: Controlled Complications: Absent Post Op Complications Complications None Follow Up Care/Instructions Patient Instructions None needed. Anesthesiology Discharge Order Discharge Order Patient was doing well after the procedure, no complaints, stable vital signs, no apparent adverse anesthesia problems. No complications reported per nursing. TRISH PECK DO Oct 12, 2021 13:02
== END 2021-10-12 12:40 | disposition home or self-care (01) ==
LOC: ENDO 09:56
PROVIDERS: ATTEND Surgery
DX: D12.5 Benign neoplasm of sigmoid colon (principal); D12.0 Benign neoplasm of cecum; K62.1 Rectal polyp; K57.30 Diverticulosis of large intestine without perforation or abscess without bleeding; K64.8 Other hemorrhoids; Z79.82 Long term (current) use of aspirin; Z87.891 Personal history of nicotine dependence; E66.01 Morbid (severe) obesity due to excess calories; Z68.38 Body mass index [BMI] 38.0-38.9, adult; Z95.5 Presence of coronary angioplasty implant and graft
CPT/HCPCS: 88305

== ENCOUNTER → 2022-06-18 | Outpatient (CLI) | payer MEDICARE | LOC: RAD FS 09:32 | PROVIDERS: ATTEND Family Medicine | DX: K58.1 Irritable bowel syndrome with constipation (principal); E66.09 Other obesity due to excess calories; I10 Essential (primary) hypertension; R05.3 Chronic cough ==